=== PATIENT | male | born 1930 | race Caucasian/White ===

== ENCOUNTER 2016-08-15 14:38 | Inpatient (IN) | payer OTHER ==
[2016-08-15] MEDS ORDERED: methylPREDNISolone NA SUCC 125 MG/2 ML VIAL IVPB ONE (16:44)
[2016-08-15] MEDS ORDERED: ALBUTEROL SO4 2.5/IPRATROPIUM 0.5 INH SOL 3 ML VIAL.NEB. NEB ONE ×6 (16:44→18:18)
--- NOTE | 2016-08-15 16:44 | PDOC ---
History of Present Illness - General History Source: Patient, Family Exam Limitations: No Limitations - History of Present Illness Initial Comments: 08/15/16 17:37 The patient is an 84 year old male, with significant past medical history of asthma, COPD, NIDDM, colon perforation, colostomy, multiple hernias, hernia repair, diverticulitis, who presents today complaining of SOB, wheezing, and dry cough x 2 days. The patient notes that he administers 3-4 nebulizer treatments at home per day. He has been compliant with his medications today, but is still short of breath and wheezing. The patients daughter states that the patient usually starts to take his prednisone when the wheezing and SOB persist. Denies fever, chills, nausea, vomiting. Denies chest pain. Denies abdominal pain. Allergies: quinine sulfate PCP- Dr. Jin <Iris Sorto - Last Filed: 08/15/16 17:37> <Lindsey Sanz - Last Filed: 08/16/16 01:28> - General Chief Complaint: Shortness of Breath Stated Complaint: DIFF BREATHING Time Seen by Provider: 08/15/16 16:29 Past History <Iris Sorto - Last Filed: 08/15/16 17:37> - Past Medical History Asthma: Yes COPD: Yes Diabetes: Yes - Surgical History Abdominal Surgery: Yes (COLOSTOMY,HERNIA REPAIR) - Psycho/Social/Smoking Cessation Hx Anxiety: No Suicidal Ideation: No Smoking Status: No Smoking History: Never smoked Number of Cigarettes Smoked Daily: 0 Information on smoking cessation initiated: No Hx Alcohol Use: No <Lindsey Sanz - Last Filed: 08/16/16 01:28> - Past Medical History Allergies/Adverse Reactions: Allergies Allergy/AdvReac Type Severity Reaction Status Date / Time quinine sulfate [From Quine] Allergy Verified 08/15/16 14:46 Home Medications: Ambulatory Orders Albuterol 0.083% Nebulizer Deanna [Ventolin 0.083%] 1 neb NEB QID 08/15/16 Allopurinol [Zyloprim -] 300 mg PO BID 08/15/16 Budesonide/Formeterol Fumarate [SYMBICORT 160/4.5mcg -] 1 inh PO DAILY 08/15/16 Cyanocobalamin (Vitamin B-12) [Vitamin B-12] 1,000 mcg SL DAILY 08/15/16 Folic Acid/B Complex C No.17 [Virt-Harman Plus Tablet] 5 mg PO DAILY 08/15/16 Furosemide [Lasix] 40 mg PO DAILY 08/15/16 Gabapentin [Neurontin -] 300 mg PO BID 08/15/16 Glimepiride [Amaryl] 2 mg PO DAILY 08/15/16 Ipratropium [place] 0.2 mg IH DAILY 08/15/16 Montelukast Na [Singulair -] 10 mg PO HS 08/15/16 Polyethylene Glycol 3350 [Miralax (For Daily Use) -] 17 gm PO DAILY 08/15/16 Potassium Chloride [K-Dur -] 20 meq PO DAILY 08/15/16 Review of Systems - Review of Systems Comments:: 08/15/16 17:38 CONSTITUTIONAL: Absent: fever, chills, diaphoresis, generalized weakness, malaise, loss of appetite HEENT: Absent: rhinorrhea, nasal congestion, throat pain, throat swelling, difficulty swallowing, mouth swelling, ear pain, eye pain, visual Changes CARDIOVASCULAR: Absent: chest pain, syncope, palpitations, irregular heart rate, lightheadedness , peripheral edema RESPIRATORY: Present: cough, SOB, wheezing. Absent: dyspnea with exertion, orthopnea, stridor, hemoptysis GASTROINTESTINAL: Absent: abdominal pain, abdominal distension, nausea, vomiting, diarrhea, constipation, melena, hematochezia GENITOURINARY: Absent: dysuria, frequency, urgency, hesitancy, hematuria, flank pain, genital pain MUSCULOSKELETAL: Absent: myalgia, arthralgia, joint swelling SKIN: Absent: rash, itching, pallor HEMATOLOGIC/IMMUNOLOGIC: Absent: easy bleeding, easy bruising, lymphadenopathy, frequent infections ENDOCRINE: Absent: unexplained weight gain, unexplained weight loss, heat intolerance, cold intolerance NEUROLOGIC: Absent: headache, focal weakness or paresthesias, dizziness, unsteady gait, seizure, mental status changes, bladder or bowel incontinence PSYCHIATRIC: Absent: anxiety, depression, suicidal or homicidal ideation, hallucinations. <Iris Sorto - Last Filed: 08/15/16 17:37> *Physical Exam - Vital Signs Last Vital Signs Temp Pulse Resp BP Pulse Ox 97.3 F L 112 H 20 121/62 99 08/15/16 14:41 08/15/16 14:41 08/15/16 14:41 08/15/16 14:41 08/15/16 15:41 - Physical Exam Comments: 08/15/16 17:38 GENERAL: Well developed, well nourished. Awake and alert and conversive. In no acute distress. HEENT: Normocephalic, atraumatic. PERRLA, EOMI. No conjunctival pallor. Sclera are non- icteric. Moist mucous membranes. Oropharynx is clear. NECK: Supple. Full ROM. No JVD. Carotid pulses 2+ and symmetric, without bruits. No thyromegaly. No lymphadenopathy. CARDIOVASCULAR: Regular rate and rhythm. No murmurs, rubs, or gallops. Distal pulses are 2+ and symmetric. PULMONARY: +Diffuse wheezing in all lung ramos. No rales or rhonchi. ABDOMINAL: +Large reducible ventral hernias. Well heeled lower abdominal incision. Soft. Non-tender. No rebound or guarding. No organomegaly. Normoactive bowel sounds. MUSCULOSKELETAL Normal range of motion at all joints. No bony deformities or tenderness. No CVA tenderness. EXTREMITIES: 3+ pitting edema in the lower extremities bilaterally. No cyanosis. No clubbing. No calf tenderness. SKIN: Warm and dry. Normal capillary refill. No rashes. No jaundice. NEUROLOGICAL: Alert, awake, appropriate. Cranial nerves 2-12 intact. No deficits to light touch and temperature in face, upper extremities and lower extremities. No motor deficits in the in face, upper extremities and lower extremities. Normoreflexic in the upper and lower extremities. Normal speech. Toes are downgoing bilaterally. Gait is normal without ataxia. PSYCHIATRIC: Cooperative. Good eye contact. Appropriate mood and affect. <Iris Sorto - Last Filed: 08/15/16 17:37> - Vital Signs Last Vital Signs Temp Pulse Resp BP Pulse Ox 97.3 F L 112 H 20 121/62 99 08/15/16 14:41 08/15/16 14:41 08/15/16 14:41 08/15/16 14:41 08/15/16 15:41 <Lindsey Sanz - Last Filed: 08/16/16 01:28> ED Treatment Course - LABORATORY CBC & Chemistry Diagram: 08/15/16 16:50 08/15/16 16:50 - ADDITIONAL ORDERS Additional order review: 08/15/16 16:50 RBC 4.75 MCV 88.3 MCHC 33.7 RDW 14.7 MPV 8.0 Neutrophils % 67.2 Lymphocytes % 18.3 D Monocytes % 8.9 Eosinophils % 4.8 H D Basophils % 0.8 - Medications Given in the ED: ED Medications Discontinued Medications Generic Name Dose Route Start Last Admin Trade Name Candace PRN Reason Stop Dose Admin Methylprednisolone Sodium Succinate 125 mg 08/15/16 16:44 08/15/16 16:57 Solu-Medrol - IVPB 08/15/16 16:45 125 mg ONCE ONE Administration <Iris Sorto - Last Filed: 08/15/16 17:37> - LABORATORY CBC & Chemistry Diagram: 08/15/16 16:50 08/15/16 16:50 <Lindsey Sanz - Last Filed: 08/16/16 01:28> Medical Decision Making - Medical Decision Making 08/16/16 01:24 85 yo male p/w weakness and increasing sob -PMH of copd and tonight he was wheezing -he responded to bronchodilators and steroids cxr no infiltrates neg troponin imp copd exacerbation <Lindsey Sanz - Last Filed: 08/16/16 01:28> *DC/Admit/Observation/Transfer - Attestations Scribe Attestion: 08/15/16 17:39 Documentation prepared by TANO Rajan, acting as medical clinic manager for Lindsey Sanz MD. <Iris Sorto - Last Filed: 08/15/16 17:37> - Discharge Dispostion Admit: Yes <Lindsey Sanz - Last Filed: 08/16/16 01:28> Diagnosis at time of Disposition: COPD exacerbation - Referrals
[2016-08-15] MEDS ORDERED: methylPREDNISolone NA SUCC 125 MG/2 ML VIAL ONE (16:55)
[2016-08-15 17:00] LABS: BASOPHIL 0.8 % (0-2.0); EOSINOPHIL 4.8 % (0-4.5); MCH 29.7 pg (25.7-33.7); MCHC 33.7 g/dl (32.0-35.9); MEAN CELL VOLUME 88.3 fl (80-96); NEUTROPHILS 67.2 % (42.8-82.8); PLATELET COUNT 140 K/MM3 (134-434); RDW 14.7 % (11.9-15.9); WHITE BLOOD COUNT 6.3 K/mm3 (4.0-10.0)
[2016-08-15] MEDS ORDERED: ALBUTEROL SO4 0.083% IH SOL 2.5 MG/3 ML VIAL.NEB. NEB ONE ×2 (17:25→18:03)
[2016-08-15 17:54] LABS: ALBUMIN 3.7 g/dl (3.4-5.0); ANION GAP 10 (8-16); CALCIUM 9.2 mg/dL (8.5-10.1); CO2 27 mmol/L (21-32); CREATININE 0.9 mg/dL (0.7-1.3); GLUCOSE,RANDOM 104 mg/dL (74-106); SGOT/AST 26 U/L (15-37); SGPT/ALT 31 U/L (12-78)
[2016-08-15 17:56] LABS: ALK PHOS 78 U/L (45-117); BILIRUBIN,TOTAL 0.9 mg/dL (0.2-1.0); TOT PROT 6.7 g/dl (6.4-8.2)
[2016-08-15 18:15] LABS: TROPONIN I < 0.02 ng/ml (0.00-0.05)
--- NOTE | 2016-08-15 21:43 | HP ---
[id number] [id number] HISTORY OF PRESENT ILLNESS: Patient is an 84 yo M with a PMHx of asthma, COPD, NIDDM, colon perforation, colostomy, multiple hernias, hernia repair, diverticulitis who presents with sob and wheezing. Also has associated dry cough of 2 days in duration. Patients notes hes been taking 3-4 nebulizer treatments without improvement. Denies chest pain, chest pressure, sputum production with cough. Denies: palpitations, abdominal pain, fever, chills, nausea, vomiting, diarrhea and headaches. ER course is notable for: 1. Chest X-Ray with no acute process 2. Slightly elevated BMp at 457 3. Solumedrol and albuterol nebulizers given in ED Recent Travel: None PAST MEDICAL HISTORY: asthma, COPD, NIDDM, colon perforation, colostomy, multiple hernias, hernia repair, diverticulitis PAST SURGICAL HISTORY: colostomy and hernia repair Social History: Smoking: None Alcohol: None Drugs: None Family History: Noncontributory Allergies quinine sulfate [From Quine] Allergy (Verified 08/15/16 14:46) HOME MEDICATIONS: Home Medications Medication Instructions Recorded Albuterol 0.083% Nebulizer Deanna 1 neb NEB QID 08/15/16 [Ventolin 0.083%] Allopurinol [Zyloprim -] 300 mg PO BID 08/15/16 Budesonide/Formeterol Fumarate 1 inh PO DAILY 08/15/16 [SYMBICORT 160/4.5mcg -] Cyanocobalamin (Vitamin B-12) 1,000 mcg SL DAILY 08/15/16 [Vitamin B-12] Folic Acid/B Complex C No.17 5 mg PO DAILY 08/15/16 [Virt-Harman Plus Tablet] Furosemide [Lasix] 40 mg PO DAILY 08/15/16 Gabapentin [Neurontin -] 300 mg PO BID 08/15/16 Glimepiride [Amaryl] 2 mg PO DAILY 08/15/16 Ipratropium [place] 0.2 mg IH DAILY 08/15/16 Montelukast Na [Singulair -] 10 mg PO HS 08/15/16 Polyethylene Glycol 3350 [Miralax 17 gm PO DAILY 08/15/16 (For Daily Use) -] Potassium Chloride [K-Dur -] 20 meq PO DAILY 08/15/16 REVIEW OF SYSTEMS CONSTITUTIONAL: Absent: fever, chills, diaphoresis, generalized weakness, malaise, loss of appetite, weight change HEENT: Absent: rhinorrhea, nasal congestion, throat pain, throat swelling, difficulty swallowing, mouth swelling, ear pain, eye pain, visual changes CARDIOVASCULAR: Absent: chest pain, syncope, palpitations, irregular heart rate, lightheadedness , peripheral edema RESPIRATORY: +dry cough, sob, wheezing Absent: dyspnea with exertion, orthopnea, stridor, hemoptysis GASTROINTESTINAL: Absent: abdominal pain, abdominal distension, nausea, vomiting, diarrhea, constipation, melena, hematochezia GENITOURINARY: Absent: dysuria, frequency, urgency, hesitancy, hematuria, flank pain, genital pain MUSCULOSKELETAL: Absent: myalgia, arthralgia, joint swelling, back pain, neck pain SKIN: Absent: rash, itching, pallor HEMATOLOGIC/IMMUNOLOGIC: Absent: easy bleeding, easy bruising, lymphadenopathy, frequent infections ENDOCRINE: Absent: unexplained weight gain, unexplained weight loss, heat intolerance, cold intolerance NEUROLOGIC: Absent: headache, focal weakness or paresthesias, dizziness, unsteady gait, seizure, mental status changes, bladder or bowel incontinence PSYCHIATRIC: Absent: anxiety, depression, suicidal or homicidal ideation, hallucinations. PHYSICAL EXAMINATION Vital Signs - 24 hr 08/15/16 08/15/16 14:41 15:41 Temperature 97.3 F L Pulse Rate 112 H Respiratory 20 Rate Blood Pressure 121/62 O2 Sat by Pulse 97 99 Oximetry (%) GENERAL: Awake, alert, and fully oriented, in no acute distress. HEAD: Normal with no signs of trauma. EYES: Pupils equal, round and reactive to light, extraocular movements intact, sclera anicteric, conjunctiva clear. No lid lag. EARS, NOSE, THROAT: Ears normal, nares patent, oropharynx clear without exudates. Moist mucous membranes. NECK: Normal range of motion, supple without lymphadenopathy, JVD, or masses. LUNGS: Breath sounds equal, Bilateral midl expiratory wheezing. No crackles. No accessory muscle use. HEART: Regular rate and rhythm, normal S1 and S2 without murmur, rub or gallop. ABDOMEN: Soft, nontender, not distended, normoactive bowel sounds, no guarding, no rebound, no masses. No hepatomegaly or splenomegaly. MUSCULOSKELETAL: Normal range of motion at all joints. No bony deformities or tenderness. No CVA tenderness. UPPER EXTREMITIES: 2+ pulses, warm, well-perfused. No cyanosis. No clubbing. No peripheral edema. LOWER EXTREMITIES: 2+ pulses, warm, well-perfused. No calf tenderness. No peripheral edema. NEUROLOGICAL: Cranial nerves II-XII intact. Normal speech. Gait not accessed. PSYCHIATRIC: Cooperative. Good eye contact. Appropriate mood and affect. SKIN: Warm, dry, normal turgor, no rashes or lesions noted, normal capillary refill. Laboratory Results - last 24 hr 08/15/16 08/15/16 08/15/16 16:50 16:50 16:50 WBC 6.3 RBC 4.75 Hgb 14.1 D Hct 42.0 D MCV 88.3 MCHC 33.7 RDW 14.7 Plt Count 140 D MPV 8.0 Neutrophils % 67.2 Lymphocytes % 18.3 D Monocytes % 8.9 Eosinophils % 4.8 H D Basophils % 0.8 Sodium 142 Potassium 4.5 D Chloride 105 Carbon Dioxide 27 Anion Gap 10 BUN 21 H D Creatinine 0.9 Creat Clearance w eGFR > 60 Random Glucose 104 Calcium 9.2 Total Bilirubin 0.9 D AST 26 D ALT 31 D Alkaline Phosphatase 78 Creatine Kinase Troponin I B-Natriuretic Peptide 457.56 H Total Protein 6.7 Albumin 3.7 08/15/16 17:50 WBC RBC Hgb Hct MCV MCHC RDW Plt Count MPV Neutrophils % Lymphocytes % Monocytes % Eosinophils % Basophils % Sodium Potassium Chloride Carbon Dioxide Anion Gap BUN Creatinine Creat Clearance w eGFR Random Glucose Calcium Total Bilirubin AST ALT Alkaline Phosphatase Creatine Kinase 73 Troponin I < 0.02 B-Natriuretic Peptide Total Protein Albumin ASSESSMENT/PLAN: Patient is an 84 yo M with a PMHx of asthma, COPD, NIDDM, colon perforation, colostomy, multiple hernias, hernia repair, diverticulitis who presents with sob being admitted for COPD exacerbation. 1.) Acute exacerbation of COPD -Continue with duoneb ATC/PRN -Continue with prednisone 60 in AM -Continue with symbicort -Continue with singulair 2.) Asthma -Continue nebs 3.) Diabetes noninsulin dependent -Continue glimepiride -Sliding scale -Fingersticks -ACHS DVT ppx -Low risk -Heparin 5000 Q 8 Admit to [facility] Documentation prepared by Nohemy Loera, acting as medical records assistant for Giovani Barnett.O. ER attempted to contact Dr. Jin from 8pm - 9:25pm. Hospitalist accepted admission. <Herrera Tobar - Last Filed: 09/08/16 19:03> Visit type - Emergency Visit Emergency Visit: Yes ED Registration Date: 08/15/16 Care time: The patient presented to the Emergency Department on the above date and was hospitalized for further evaluation of their emergent condition. - New Patient This patient is new to me today: Yes Date on this admission: 09/08/16 - Critical Care Critical Care patient: No
[2016-08-15] MEDS ORDERED: ALBUTEROL SO4 2.5/IPRATROPIUM 0.5 INH SOL 3 ML VIAL.NEB. NEB PRN (21:58)
[2016-08-15] MEDS ORDERED: ALBUTEROL SO4 2.5/IPRATROPIUM 0.5 INH SOL 3 ML VIAL.NEB. NEB SCH (22:00)
[2016-08-15] MEDS: ALLOPURINOL 300 MG TABLET (FP) PO SCH (22:30)
[2016-08-15] MEDS: MONTELUKAST NA 10 MG TABLET PO SCH (22:30)
[2016-08-15] MEDS: GABAPENTIN 300 MG CAPSULE (FP) PO SCH (22:30)
[2016-08-15] MEDS: INSULIN SLIDING SCALE (NOVOLOG) 1 VIAL SQ SCH (23:00)
[2016-08-15] MEDS: LEVOFLOXACIN 750 MG IVPB 150 ML IVPB SCH (23:00)
[2016-08-15] MEDS ORDERED: LEVOFLOXACIN 750 MG IVPB 150 ML IVPB ONE (23:15)
[2016-08-15] MEDS ORDERED: INSULIN NPH 100 UNITS/ML *VIAL ONE (23:42)
[2016-08-16 00:52] VITALS: BMI 28.8
[2016-08-16] MEDS: HEPARIN NA (PORCINE) 5,000 UNITS/ML 1ML VIAL SQ SCH ×3 (01:43→17:35)
[2016-08-16] MEDS ORDERED: INSULIN (NOVOLOG) ASPART 100 UNITS/ML 10ML VIAL ONE ×2 (06:31→11:15)
[2016-08-16] MEDS: INSULIN SLIDING SCALE (NOVOLOG) 1 VIAL SQ SCH ×4 (06:39→21:19)
[2016-08-16] MEDS: GLIMEPIRIDE 2 MG TABLET (FP) PO SCH (06:39)
[2016-08-16 07:28] LABS: MCHC 34.3 g/dl (32.0-35.9); MEAN CELL VOLUME 87.4 fl (80-96); MEAN PLT VOLUME 7.2 fl (7.5-11.1); PLATELET COUNT 127 K/MM3 (134-434); RDW 14.3 % (11.9-15.9); WHITE BLOOD COUNT 3.1 K/mm3 (4.0-10.0)
[2016-08-16 07:49] LABS: CALCIUM 8.9 mg/dL (8.5-10.1); MAGNESIUM 1.8 mg/dL (1.8-2.4)
[2016-08-16] MEDS ORDERED: PT OWN MED DRAWER 7, Y5N ONE ×2 (09:06→20:58)
[2016-08-16] MEDS: LEVOFLOXACIN 750 MG IVPB 150 ML IVPB SCH (09:11)
[2016-08-16] MEDS: FUROSEMIDE 40 MG TABLET (FP) PO SCH (09:12)
[2016-08-16] MEDS: CYANOCOBALAMIN 1,000 MCG TABLET (FP) PO SCH (09:12)
[2016-08-16] MEDS: GABAPENTIN 300 MG CAPSULE (FP) PO SCH ×2 (09:12→21:18)
[2016-08-16] MEDS: ALLOPURINOL 300 MG TABLET (FP) PO SCH ×2 (09:12→21:18)
[2016-08-16] MEDS ORDERED: BUDESONIDE/FORMETEROL FUMARATE 160/4.5 mcg INHALER IH SCH (10:00)
[2016-08-16] MEDS ORDERED: predniSONE 20 MG TABLET (UD) PO SCH (10:00)
--- NOTE | 2016-08-16 11:39 | PN ---
Progress Note (short form) - Note Progress Note: patient seen and examined in room Dyspneic reports CEJA provides hx of progressive SOB over last week or so worse yesterday -brought in by daughter who is a nurse Vital Signs Period Temp Pulse Resp BP Sys/Prather Pulse Ox Last 24 Hr 97.3 F-97.7 F 82-112 16-20 117-126/62-80 96-99 sitting in chair O2 in place neck supple heart reg Lung wheezing insp / exp coughing with deep inspiration CBC, BMP 08/16/16 06:20 08/16/16 06:20 Active Medications Albuterol/Ipratropium (Duoneb -) 1 amp NEB Q6H PRN PRN Reason: SHORT OF BREATH/WHEEZING Albuterol/Ipratropium (Duoneb -) 1 amp NEB TIDR [facility] Last Admin: 08/15/16 22:30 Dose: 1 amp Allopurinol (Zyloprim -) 300 mg PO BID [facility] Last Admin: 08/16/16 09:12 Dose: 300 mg Budesonide/Formoterol Fumarate (Symbicort 160/4.5mcg -) 1 puff IH DAILY [facility] Last Admin: 08/16/16 09:13 Dose: 1 puff Cyanocobalamin (Vitamin B12 -) 1,000 mcg PO DAILY [facility] Last Admin: 08/16/16 09:12 Dose: 1,000 mcg Furosemide (Lasix -) 40 mg PO DAILY [facility] Last Admin: 08/16/16 09:12 Dose: 40 mg Gabapentin (Neurontin -) 300 mg PO BID [facility] Last Admin: 08/16/16 09:12 Dose: 300 mg Glimepiride (Amaryl -) 2 mg PO AM [facility] Last Admin: 08/16/16 06:39 Dose: 2 mg Heparin Sodium (Porcine) (Heparin -) 5,000 unit SQ Q8H-IV [facility] Last Admin: 08/16/16 09:12 Dose: 5,000 unit Levofloxacin (Levaquin 750 Mg Premixed Ivpb -) 150 mls @ 100 mls/hr IVPB DAILY [facility] Last Admin: 08/16/16 09:11 Dose: 100 mls/hr Insulin Aspart (Novolog Vial Sliding Scale -) 1 vial SQ ACHS [facility]AN PRN Reason: Protocol Last Admin: 08/16/16 11:17 Dose: 2 unit Montelukast Sodium (Singulair -) 10 mg PO HS [facility] Last Admin: 08/15/16 22:30 Dose: 10 mg Non-Formulary Medication (Folic Acid/B Complex C No.17 [Virt-Harman Plus Tablet]) 5 mg PO DAILY [facility] Prednisone (Deltasone -) 60 mg PO DAILY [facility] Last Admin: 08/16/16 09:12 Dose: 60 mg The patient is an 84 year old male, with significant past medical history of asthma, COPD, NIDDM, colon perforation, colostomy, multiple hernias, hernia repair, diverticulitis, who presents today complaining of SOB, wheezing, and dry cough The patient notes that he administers 3-4 nebulizer treatments at home per day. He has been compliant with his medications today, but is still short of breath and wheezing. The patients daughter states that the patient usually starts to take his prednisone when the wheezing and SOB persist. # exacebation of COPD IV steroids / inhaled steroids/ nebulizer O2 / expectorants emperic abx tx Pulmonary consult Dr Castro # DM sliding scale - adjust as patient on steorids # GI hx colon perforation / clostomy / hernia repairs diverticulitis Problem List - Problems (1) COPD exacerbation Code(s): J44.1 - CHRONIC OBSTRUCTIVE PULMONARY DISEASE W (ACUTE) EXACERBATION (2) Diabetes mellitus Code(s): E11.9 - TYPE 2 DIABETES MELLITUS WITHOUT COMPLICATIONS
[2016-08-16] MEDS: methylPREDNISolone NA SUCC 125 MG/2 ML VIAL IVPB SCH ×2 (13:04→17:34)
[2016-08-16] MEDS: guaiFENesin 600 MG TABLET.ER (FP) PO SCH ×2 (13:05→21:18)
--- NOTE | 2016-08-16 13:07 | CON.PULM ---
Consult Consult Specialty:: PULM/CCM Referred by:: MARTITA Reason for Consultation:: SOB - History of Present Illness Chief Complaint: Progressive SOB over 1 week History of Present Illness: 84 M, remote smoking history, suspected to have COPD, (?) adult onset Asthma ( never steroid dependent, never intubated, unknown PEF), NIDDM, colon perforation , colostomy, multiple hernias and hernia repair, and diverticulitis. 1 week of progressively worsening SOB and congested cough. No travel history or sick contacts. No fever or chills. No hemoptysis. CXR: Minimal chronic change when compared to old films / no acute process - History Source History Provided By: Patient Limitations to Obtaining History: No Limitations - Past Medical History Pulmonary: Yes: Asthma, Bronchitis, COPD. No: O2 Dependent, Previously Intubated, Pulmonary Embolus - Alcohol/Substance Use Hx Alcohol Use: No - Smoking History Smoking history: Never smoked Aproximately how many cigarettes per day: 0 Home Medications - Allergies Allergies/Adverse Reactions: Allergies Allergy/AdvReac Type Severity Reaction Status Date / Time quinine sulfate [From Quine] Allergy Verified 08/15/16 14:46 - Home Medications Home Medications: Ambulatory Orders Albuterol 0.083% Nebulizer Deanna [Ventolin 0.083%] 1 neb NEB QID 08/15/16 Allopurinol [Zyloprim -] 300 mg PO BID 08/15/16 Budesonide/Formeterol Fumarate [SYMBICORT 160/4.5mcg -] 1 inh PO DAILY 08/15/16 Cyanocobalamin (Vitamin B-12) [Vitamin B-12] 1,000 mcg SL DAILY 08/15/16 Folic Acid/B Complex C No.17 [Virt-Harman Plus Tablet] 5 mg PO DAILY 08/15/16 Furosemide [Lasix] 40 mg PO DAILY 08/15/16 Gabapentin [Neurontin -] 300 mg PO BID 08/15/16 Glimepiride [Amaryl] 2 mg PO DAILY 08/15/16 Ipratropium [place] 0.2 mg IH DAILY 08/15/16 Montelukast Na [Singulair -] 10 mg PO HS 08/15/16 Polyethylene Glycol 3350 [Miralax (For Daily Use) -] 17 gm PO DAILY 08/15/16 Potassium Chloride [K-Dur -] 20 meq PO DAILY 08/15/16 Review of Systems - Review of Systems Constitutional: reports: Malaise. denies: Chills, Diaphoresis, Fever, Night Sweats, Unintentional Wgt. Loss, Weakness Eyes: reports: No Symptoms HENT: reports: No Symptoms Neck: reports: No Symptoms Cardiovascular: reports: Shortness of Breath. denies: Chest Pain, Edema, Palpitations Respiratory: reports: Cough, SOB, SOB on Exertion, Wheezing. denies: Hemoptysis , Snoring Gastrointestinal: reports: No Symptoms Genitourinary: reports: No Symptoms Breasts: reports: No Symptoms Reported Musculoskeletal: reports: No Symptoms Integumentary: reports: No Symptoms Neurological: reports: No Symptoms Endocrine: reports: No Symptoms Hematology/Lymphatic: reports: No Symptoms Psychiatric: reports: No Symptoms Physical Exam Vital Sings: Vital Signs Temperature 97.6 F 08/16/16 09:31 Pulse Rate 85 08/16/16 09:31 Respiratory Rate 20 08/16/16 09:31 Blood Pressure 126/68 08/16/16 09:31 O2 Sat by Pulse Oximetry (%) 97 08/16/16 09:00 Constitutional: Yes: Well Nourished, No Distress, Calm Eyes: Yes: Conjunctiva Clear, EOM Intact HENT: Yes: Atraumatic, Normocephalic Neck: Yes: Supple, Trachea Midline Cardiovascular: Yes: Regular Rate and Rhythm Respiratory: Yes: Cough, Diminished, On Nasal O2, Rhonchi, SOB, Wheezes. No: Accessory Muscle Use, Rales, Stridor, Tachypnea ...Inspection: Yes: WNL ...Clubbing: No Gastrointestinal: Yes: Normal Bowel Sounds, Soft, Abdomen, Obese Renal/: Yes: WNL Musculoskeletal: Yes: WNL Extremities: Yes: WNL Edema: No Peripheral Pulses WNL: Yes Integumentary: Yes: WNL Neurological: Yes: WNL, Alert, Oriented ...Motor Strength: WNL Psychiatric: Yes: WNL, Alert, Oriented Labs: CBC, BMP 08/16/16 06:20 08/16/16 06:20 Imaging - Results Chest X-ray: Report Reviewed, Image Reviewed Problem List - Problems (1) COPD exacerbation Code(s): J44.1 - CHRONIC OBSTRUCTIVE PULMONARY DISEASE W (ACUTE) EXACERBATION (2) Diabetes mellitus Code(s): E11.9 - TYPE 2 DIABETES MELLITUS WITHOUT COMPLICATIONS (3) Acute bronchitis Code(s): J20.9 - ACUTE BRONCHITIS, UNSPECIFIED Assessment/Plan Medrol BD TX ordered Symbicort : 2 inhalations BID Monitor off ABX for now : I suspect a Viral illness O2 as needed PFTs after stable/discharge VTE prophylaxis Mucinex Will follow Thank you. Dr Langley
[2016-08-16] MEDS: ALBUTEROL SO4 0.083% IH SOL 2.5 MG/3 ML VIAL.NEB. NEB SCH ×2 (14:11→21:19)
[2016-08-16] MEDS: BUDESONIDE/FORMETEROL FUMARATE 160/4.5 mcg INHALER IH SCH (21:18)
[2016-08-16] MEDS: MONTELUKAST NA 10 MG TABLET PO SCH (21:18)
[2016-08-17] MEDS: methylPREDNISolone NA SUCC 125 MG/2 ML VIAL IVPB SCH ×3 (01:19→18:21)
[2016-08-17] MEDS: HEPARIN NA (PORCINE) 5,000 UNITS/ML 1ML VIAL SQ SCH ×3 (01:20→18:21)
[2016-08-17] MEDS: ALBUTEROL SO4 0.083% IH SOL 2.5 MG/3 ML VIAL.NEB. NEB SCH ×3 (06:01→22:14)
[2016-08-17] MEDS: GLIMEPIRIDE 2 MG TABLET (FP) PO SCH (06:35)
[2016-08-17] MEDS: INSULIN SLIDING SCALE (NOVOLOG) 1 VIAL SQ SCH ×4 (06:36→23:40)
[2016-08-17 07:45] LABS: BASOPHIL 0.1 % (0-2.0); MCH 29.7 pg (25.7-33.7); MCHC 33.5 g/dl (32.0-35.9); MEAN CELL VOLUME 88.8 fl (80-96); MEAN PLT VOLUME 7.6 fl (7.5-11.1); NEUTROPHILS 93.2 % (42.8-82.8); PLATELET COUNT 120 K/MM3 (134-434); RDW 14.3 % (11.9-15.9); WHITE BLOOD COUNT 7.1 K/mm3 (4.0-10.0)
--- NOTE | 2016-08-17 08:06 | EKG ---
Test Reason : Blood Pressure : / mmHG Vent. Rate : 084 BPM Atrial Rate : 084 BPM P-R Int : 180 ms QRS Dur : 114 ms QT Int : 392 ms P-R-T Axes : 039 -55 029 degrees QTc Int : 463 ms NORMAL SINUS RHYTHM RIGHT BUNDLE BRANCH BLOCK LEFT ANTERIOR FASCICULAR BLOCK BIFASCICULAR BLOCK ABNORMAL ECG WHEN COMPARED WITH ECG OF 03-SEP-2012 19:32, NO SIGNIFICANT CHANGE WAS FOUND Confirmed by HERNAN CHEN MD ([id number]) on 08/17/2016 8:05:36 AM Referred By: Confirmed By:HERNAN CHEN MD
[2016-08-17 08:15] LABS: ALBUMIN 3.8 g/dl (3.4-5.0); CALCIUM 9.8 mg/dL (8.5-10.1); MAGNESIUM 1.9 mg/dL (1.8-2.4)
[2016-08-17 08:18] LABS: BILIRUBIN,TOTAL 0.8 mg/dL (0.2-1.0); CREATININE 1.2 mg/dL (0.7-1.3); TOT PROT 6.9 g/dl (6.4-8.2)
[2016-08-17] MEDS ORDERED: PT OWN MED DRAWER 7, Y5N ONE (09:31)
[2016-08-17] MEDS: FUROSEMIDE 40 MG TABLET (FP) PO SCH ×2 (09:37→12:39)
[2016-08-17] MEDS: GABAPENTIN 300 MG CAPSULE (FP) PO SCH ×2 (09:37→21:22)
[2016-08-17] MEDS: guaiFENesin 600 MG TABLET.ER (FP) PO SCH ×2 (09:37→21:21)
[2016-08-17] MEDS: CYANOCOBALAMIN 1,000 MCG TABLET (FP) PO SCH (09:37)
[2016-08-17] MEDS: ALLOPURINOL 300 MG TABLET (FP) PO SCH ×2 (09:37→21:22)
[2016-08-17] MEDS: BUDESONIDE/FORMETEROL FUMARATE 160/4.5 mcg INHALER IH SCH (09:38)
[2016-08-17] MEDS ORDERED: INSULIN (NOVOLOG) ASPART 100 UNITS/ML 10ML VIAL ONE (11:27)
--- NOTE | 2016-08-17 12:05 | PN ---
Progress Note (short form) - Note Progress Note: OOB to chair. Reports feeling better today. Less SOB. Slightly less congested cough. CXR: Clear Intake & Output 08/14/16 08/15/16 08/16/16 08/17/16 23:59 23:59 23:59 23:59 Intake Total 600 50 Output Total 200 Balance 400 50 Weight 168 lb 169 lb 167 lb 3 oz Last Vital Signs Temp Pulse Resp BP Pulse Ox 99.0 F 97 H 18 119/68 97 08/17/16 10:30 08/17/16 10:27 08/17/16 10:27 08/17/16 10:27 08/16/16 20:23 Active Medications Albuterol Sulfate (Ventolin 0.083% Nebulizer Soln -) 1 amp NEB TID [facility] Last Admin: 08/17/16 06:01 Dose: 1 amp Albuterol/Ipratropium (Duoneb -) 1 amp NEB Q6H PRN PRN Reason: SHORT OF BREATH/WHEEZING Allopurinol (Zyloprim -) 300 mg PO BID [facility] Last Admin: 08/17/16 09:37 Dose: 300 mg Budesonide/Formoterol Fumarate (Symbicort 160/4.5mcg -) 2 puff IH BID [facility] Last Admin: 08/17/16 09:38 Dose: 2 puff Cyanocobalamin (Vitamin B12 -) 1,000 mcg PO DAILY [facility] Last Admin: 08/17/16 09:37 Dose: 1,000 mcg Furosemide (Lasix -) 40 mg PO DAILY [facility] Last Admin: 08/17/16 09:37 Dose: Not Given Gabapentin (Neurontin -) 300 mg PO BID [facility] Last Admin: 08/17/16 09:37 Dose: 300 mg Glimepiride (Amaryl -) 2 mg PO AM [facility] Last Admin: 08/17/16 06:35 Dose: 2 mg Guaifenesin (Mucinex -) 600 mg PO BID [facility] Last Admin: 08/17/16 09:37 Dose: 600 mg Heparin Sodium (Porcine) (Heparin -) 5,000 unit SQ Q8H-IV [facility] Last Admin: 08/17/16 09:37 Dose: 5,000 unit Insulin Aspart (Novolog Vial Sliding Scale -) 1 vial SQ ACHS [facility] PRN Reason: Protocol Last Admin: 08/17/16 11:31 Dose: 4 unit Methylprednisolone Sodium Succinate (Solu-Medrol -) 80 mg IVPB Q8H-IV [facility] Last Admin: 08/17/16 09:36 Dose: 80 mg Montelukast Sodium (Singulair -) 10 mg PO HS [facility] Last Admin: 08/16/16 21:18 Dose: 10 mg Non-Formulary Medication (Folic Acid/B Complex C No.17 [Virt-Harman Plus Tablet]) 5 mg PO DAILY [facility] Constitutional: Yes: NAD Eyes: Yes: Conjunctiva Clear, EOM Intact HENT: Yes: Atraumatic, Normocephalic Neck: Yes: Supple, Trachea Midline Cardiovascular: Yes: Regular Rate and Rhythm Respiratory: Yes: Cough, Diminished, On Nasal O2, Rhonchi, Less Wheezes. No: Accessory Muscle Use, Rales, Stridor, Tachypnea ...Inspection: Yes: WNL ...Clubbing: No Gastrointestinal: Yes: Normal Bowel Sounds, Soft, Abdomen, Obese Renal/: Yes: WNL Musculoskeletal: Yes: WNL Extremities: Yes: WNL Edema: No Peripheral Pulses WNL: Yes Integumentary: Yes: WNL Neurological: Yes: WNL, Alert, Oriented ...Motor Strength: WNL Psychiatric: Yes: WNL, Alert, Oriented Labs: Laboratory Results - last 24 hr 08/16/16 08/16/16 08/17/16 16:57 21:08 05:27 WBC RBC Hgb Hct MCV MCHC RDW Plt Count MPV Neutrophils % Lymphocytes % Monocytes % Eosinophils % Basophils % Sodium Potassium Chloride Carbon Dioxide Anion Gap BUN Creatinine Creat Clearance w eGFR POC Glucometer 202 258 252 Random Glucose Calcium Magnesium Total Bilirubin AST ALT Alkaline Phosphatase Total Protein Albumin 08/17/16 08/17/16 08/17/16 06:00 06:00 11:29 WBC 7.1 D RBC 4.64 Hgb 13.8 Hct 41.3 MCV 88.8 MCHC 33.5 RDW 14.3 Plt Count 120 L MPV 7.6 Neutrophils % 93.2 H D Lymphocytes % 6.1 L D Monocytes % 0.6 L D Eosinophils % 0.0 D Basophils % 0.1 Sodium 139 Potassium 3.4 L D Chloride 99 Carbon Dioxide 27 Anion Gap 13 BUN 24 H Creatinine 1.2 Creat Clearance w eGFR 57.54 POC Glucometer 249 Random Glucose 248 H Calcium 9.8 Magnesium 1.9 Total Bilirubin 0.8 AST 27 ALT 32 Alkaline Phosphatase 75 Total Protein 6.9 Albumin 3.8 Problem List - Problems (1) COPD exacerbation Code(s): J44.1 - CHRONIC OBSTRUCTIVE PULMONARY DISEASE W (ACUTE) EXACERBATION (2) Diabetes mellitus Code(s): E11.9 - TYPE 2 DIABETES MELLITUS WITHOUT COMPLICATIONS (3) Acute bronchitis Code(s): J20.9 - ACUTE BRONCHITIS, UNSPECIFIED Assessment/Plan Medrol taper BD TX Symbicort : 2 inhalations BID Monitor off ABX for now : I suspect a Viral illness O2 as needed PFTs after stable/discharge VTE prophylaxis Mucinex Replete emilia Langley Problem List - Problems (1) COPD exacerbation Code(s): J44.1 - CHRONIC OBSTRUCTIVE PULMONARY DISEASE W (ACUTE) EXACERBATION (2) Diabetes mellitus Code(s): E11.9 - TYPE 2 DIABETES MELLITUS WITHOUT COMPLICATIONS (3) Acute bronchitis Code(s): J20.9 - ACUTE BRONCHITIS, UNSPECIFIED
[2016-08-17] MEDS ORDERED: POTASSIUM CHLORIDE TABS 20 MEQ TABLET.ER (FP) PO ONE (12:30)
[2016-08-17] MEDS: MONTELUKAST NA 10 MG TABLET PO SCH (21:22)
[2016-08-18] MEDS: methylPREDNISolone NA SUCC 125 MG/2 ML VIAL IVPB SCH ×3 (02:33→17:23)
[2016-08-18] MEDS: HEPARIN NA (PORCINE) 5,000 UNITS/ML 1ML VIAL SQ SCH ×3 (02:33→17:23)
[2016-08-18] MEDS ORDERED: PT OWN MED DRAWER 7, Y5N ONE ×2 (06:06→20:51)
[2016-08-18] MEDS: GLIMEPIRIDE 2 MG TABLET (FP) PO SCH (06:13)
[2016-08-18] MEDS: BUDESONIDE/FORMETEROL FUMARATE 160/4.5 mcg INHALER IH SCH ×4 (06:15→21:15)
[2016-08-18] MEDS: INSULIN SLIDING SCALE (NOVOLOG) 1 VIAL SQ SCH ×4 (06:16→21:14)
[2016-08-18] MEDS: ALBUTEROL SO4 0.083% IH SOL 2.5 MG/3 ML VIAL.NEB. NEB SCH (06:31)
[2016-08-18] MEDS: GABAPENTIN 300 MG CAPSULE (FP) PO SCH ×2 (09:12→21:15)
[2016-08-18] MEDS: guaiFENesin 600 MG TABLET.ER (FP) PO SCH ×2 (09:12→21:15)
[2016-08-18] MEDS: FUROSEMIDE 40 MG TABLET (FP) PO SCH (09:12)
[2016-08-18] MEDS: ALLOPURINOL 300 MG TABLET (FP) PO SCH ×2 (09:12→21:15)
[2016-08-18] MEDS: CYANOCOBALAMIN 1,000 MCG TABLET (FP) PO SCH (09:12)
--- NOTE | 2016-08-18 09:24 | PN ---
Progress Note (short form) - Note Progress Note: coughing and wheezing worse today than yesterday Vital Signs Period Temp Pulse Resp BP Sys/Prather Pulse Ox Last 24 Hr 97.6 F-99.0 F 63-105 16-20 100-139/56-71 98-99 neck supple heart reg S1/S2 lung coarse wheezing bilat genertes inc coughing with deep inspiration abd softnon tender Active Medications Albuterol Sulfate (Ventolin 0.083% Nebulizer Soln -) 1 amp NEB TID [facility] Last Admin: 08/18/16 06:31 Dose: 1 amp Albuterol/Ipratropium (Duoneb -) 1 amp NEB Q6H PRN PRN Reason: SHORT OF BREATH/WHEEZING Allopurinol (Zyloprim -) 300 mg PO BID [facility] Last Admin: 08/18/16 09:12 Dose: 300 mg Budesonide/Formoterol Fumarate (Symbicort 160/4.5mcg -) 2 puff IH BID [facility] Last Admin: 08/18/16 09:13 Dose: 2 puff Cyanocobalamin (Vitamin B12 -) 1,000 mcg PO DAILY [facility] Last Admin: 08/18/16 09:12 Dose: 1,000 mcg Furosemide (Lasix -) 40 mg PO DAILY [facility] Last Admin: 08/18/16 09:12 Dose: 40 mg Gabapentin (Neurontin -) 300 mg PO BID [facility] Last Admin: 08/18/16 09:12 Dose: 300 mg Glimepiride (Amaryl -) 2 mg PO AM [facility] Last Admin: 08/18/16 06:13 Dose: 2 mg Guaifenesin (Mucinex -) 600 mg PO BID [facility] Last Admin: 08/18/16 09:12 Dose: 600 mg Heparin Sodium (Porcine) (Heparin -) 5,000 unit SQ Q8H-IV [facility] Last Admin: 08/18/16 09:12 Dose: 5,000 unit Insulin Aspart (Novolog Vial Sliding Scale -) 1 vial SQ ACHS [facility] PRN Reason: Protocol Last Admin: 08/18/16 06:16 Dose: 2 unit Methylprednisolone Sodium Succinate (Solu-Medrol -) 80 mg IVPB Q8H-IV [facility] Last Admin: 08/18/16 02:33 Dose: 80 mg Montelukast Sodium (Singulair -) 10 mg PO HS [facility] Last Admin: 08/17/16 21:22 Dose: 10 mg Multivitamins (Total B With C -) 1 each PO DAILY [facility] # exacebation of COPD IV steroids / inhaled steroids/ nebulizer inc nebulizer treatment to Q6h and albuterol Q4 PRN O2 / expectorants emperic abx tx Pulmonary consult Dr Castro # DM sliding scale - adjust as patient on steorids # GI hx colon perforation / clostomy / hernia repairs diverticulitis Problem List - Problems (1) COPD exacerbation Code(s): J44.1 - CHRONIC OBSTRUCTIVE PULMONARY DISEASE W (ACUTE) EXACERBATION (2) Diabetes mellitus Code(s): E11.9 - TYPE 2 DIABETES MELLITUS WITHOUT COMPLICATIONS
[2016-08-18] MEDS ORDERED: ALBUTEROL SO4 0.083% IH SOL 2.5 MG/3 ML VIAL.NEB. NEB PRN (10:09)
[2016-08-18 10:10] LABS: BASOPHIL 0.1 % (0-2.0); MCH 29.9 pg (25.7-33.7); MEAN PLT VOLUME 7.8 fl (7.5-11.1); PLATELET COUNT 110 K/MM3 (134-434); RDW 14.4 % (11.9-15.9); WHITE BLOOD COUNT 9.1 K/mm3 (4.0-10.0)
[2016-08-18 10:20] LABS: CALCIUM 9.2 mg/dL (8.5-10.1)
[2016-08-18] MEDS: ALBUTEROL SO4 2.5/IPRATROPIUM 0.5 INH SOL 3 ML VIAL.NEB. NEB SCH ×2 (11:20→18:02)
[2016-08-18] MEDS ORDERED: INSULIN (NOVOLOG) ASPART 100 UNITS/ML 10ML VIAL ONE (11:40)
--- NOTE | 2016-08-18 11:46 | PN ---
Progress Note, Physician History of Present Illness: PULMONARY ALERT,FEELING BETTER,LESS CONGESTED, LESS WHEEZES - Current Medication List Current Medications: Active Medications Albuterol Sulfate (Ventolin 0.083% Nebulizer Soln -) 1 amp NEB Q4H PRN PRN Reason: SHORT OF BREATH/WHEEZING Albuterol/Ipratropium (Duoneb -) 1 amp NEB QIDR [facility] Allopurinol (Zyloprim -) 300 mg PO BID [facility] Last Admin: 08/18/16 09:12 Dose: 300 mg Budesonide/Formoterol Fumarate (Symbicort 160/4.5mcg -) 2 puff IH BID [facility] Last Admin: 08/18/16 09:13 Dose: 2 puff Cyanocobalamin (Vitamin B12 -) 1,000 mcg PO DAILY [facility] Last Admin: 08/18/16 09:12 Dose: 1,000 mcg Furosemide (Lasix -) 40 mg PO DAILY [facility] Last Admin: 08/18/16 09:12 Dose: 40 mg Gabapentin (Neurontin -) 300 mg PO BID [facility] Last Admin: 08/18/16 09:12 Dose: 300 mg Glimepiride (Amaryl -) 2 mg PO AM [facility] Last Admin: 08/18/16 06:13 Dose: 2 mg Guaifenesin (Mucinex -) 600 mg PO BID [facility] Last Admin: 08/18/16 09:12 Dose: 600 mg Heparin Sodium (Porcine) (Heparin -) 5,000 unit SQ Q8H-IV [facility] Last Admin: 08/18/16 09:12 Dose: 5,000 unit Insulin Aspart (Novolog Vial Sliding Scale -) 1 vial SQ ACHS [facility] PRN Reason: Protocol Last Admin: 08/18/16 06:16 Dose: 2 unit Methylprednisolone Sodium Succinate (Solu-Medrol -) 80 mg IVPB Q8H-IV [facility] Last Admin: 08/18/16 10:24 Dose: 80 mg Montelukast Sodium (Singulair -) 10 mg PO HS [facility] Last Admin: 08/17/16 21:22 Dose: 10 mg Multivitamins (Total B With C -) 1 each PO DAILY [facility] - Objective Vital Signs: Vital Signs Temperature 97.8 F 08/18/16 10:45 Pulse Rate 98 H 08/18/16 10:00 Respiratory Rate 22 08/18/16 10:00 Blood Pressure 109/55 08/18/16 10:00 O2 Sat by Pulse Oximetry (%) 99 08/18/16 07:55 Constitutional: Yes: Well Nourished, Calm Eyes: Yes: WNL HENT: Yes: WNL Neck: Yes: Supple Cardiovascular: Yes: Regular Rate and Rhythm, S1, S2 Respiratory: Yes: Wheezes (ELSY WHEEZES) Gastrointestinal: Yes: Normal Bowel Sounds, Soft Extremities: Yes: WNL Edema: No Labs: CBC, BMP 08/18/16 09:30 08/18/16 09:30 Problem List - Problems (1) Asthma Code(s): J45.909 - UNSPECIFIED ASTHMA, UNCOMPLICATED (2) Asthma attack Code(s): J45.901 - UNSPECIFIED ASTHMA WITH (ACUTE) EXACERBATION Assessment/Plan Problem List - Problems (1) COPD exacerbation Code(s): J44.1 - CHRONIC OBSTRUCTIVE PULMONARY DISEASE W (ACUTE) EXACERBATION (2) Diabetes mellitus Code(s): E11.9 - TYPE 2 DIABETES MELLITUS WITHOUT COMPLICATIONS (3) Acute bronchitis Code(s): J20.9 - ACUTE BRONCHITIS, UNSPECIFIED Assessment/Plan Medrol taper BD TX Symbicort : 2 inhalations BID Monitor off ABX for now : I suspect a Viral illness O2 as needed VTE prophylaxis Mucinex DR CRUZ
[2016-08-18] MEDS: VITAMIN B COMPLEX W/C COMBO TABLET (FP) PO SCH (13:39)
[2016-08-18] MEDS: MONTELUKAST NA 10 MG TABLET PO SCH (21:15)
[2016-08-19] MEDS: ALBUTEROL SO4 2.5/IPRATROPIUM 0.5 INH SOL 3 ML VIAL.NEB. NEB SCH ×4 (00:20→19:01)
[2016-08-19] MEDS: methylPREDNISolone NA SUCC 125 MG/2 ML VIAL IVPB SCH ×4 (01:24→21:28)
[2016-08-19] MEDS: HEPARIN NA (PORCINE) 5,000 UNITS/ML 1ML VIAL SQ SCH ×3 (01:24→17:13)
[2016-08-19] MEDS: GLIMEPIRIDE 2 MG TABLET (FP) PO SCH (06:46)
[2016-08-19] MEDS: INSULIN SLIDING SCALE (NOVOLOG) 1 VIAL SQ SCH ×4 (06:46→21:29)
[2016-08-19] MEDS ORDERED: PT OWN MED DRAWER 7, Y5N ONE (09:42)
[2016-08-19] MEDS: BUDESONIDE/FORMETEROL FUMARATE 160/4.5 mcg INHALER IH SCH ×2 (09:47→21:28)
[2016-08-19] MEDS: GABAPENTIN 300 MG CAPSULE (FP) PO SCH ×2 (09:49→21:27)
[2016-08-19] MEDS: ALLOPURINOL 300 MG TABLET (FP) PO SCH ×2 (09:49→21:27)
[2016-08-19] MEDS: CYANOCOBALAMIN 1,000 MCG TABLET (FP) PO SCH (09:49)
[2016-08-19] MEDS: guaiFENesin 600 MG TABLET.ER (FP) PO SCH ×2 (09:49→21:27)
[2016-08-19] MEDS: VITAMIN B COMPLEX W/C COMBO TABLET (FP) PO SCH (09:49)
[2016-08-19] MEDS: FUROSEMIDE 40 MG TABLET (FP) PO SCH (09:49)
[2016-08-19] MEDS ORDERED: INSULIN (NOVOLOG) ASPART 100 UNITS/ML 10ML VIAL ONE ×3 (10:40→21:26)
--- NOTE | 2016-08-19 10:48 | PN ---
Progress Note (short form) - Note Progress Note: sitting in chair reports "better " Vital Signs Period Temp Pulse Resp BP Sys/Prather Pulse Ox Last 24 Hr 97.3 F-97.6 F 72-82 18-20 107-134/58-65 98-98 neck supple heart reg lungs less rhonchi /wheezing bilat improved air movement abd soft ext no calf tenderness CBC, BMP 08/18/16 09:30 08/18/16 09:30 Active Medications Albuterol Sulfate (Ventolin 0.083% Nebulizer Soln -) 1 amp NEB Q4H PRN PRN Reason: SHORT OF BREATH/WHEEZING Albuterol/Ipratropium (Duoneb -) 1 amp NEB QIDR [facility] Last Admin: 08/19/16 06:30 Dose: 1 amp Allopurinol (Zyloprim -) 300 mg PO BID [facility] Last Admin: 08/19/16 09:49 Dose: 300 mg Budesonide/Formoterol Fumarate (Symbicort 160/4.5mcg -) 2 puff IH BID [facility] Last Admin: 08/19/16 09:47 Dose: 2 puff Cyanocobalamin (Vitamin B12 -) 1,000 mcg PO DAILY [facility] Last Admin: 08/19/16 09:49 Dose: 1,000 mcg Furosemide (Lasix -) 40 mg PO DAILY [facility] Last Admin: 08/19/16 09:49 Dose: 40 mg Gabapentin (Neurontin -) 300 mg PO BID [facility] Last Admin: 08/19/16 09:49 Dose: 300 mg Glimepiride (Amaryl -) 2 mg PO AM [facility] Last Admin: 08/19/16 06:46 Dose: 2 mg Guaifenesin (Mucinex -) 600 mg PO BID [facility] Last Admin: 08/19/16 09:49 Dose: 600 mg Heparin Sodium (Porcine) (Heparin -) 5,000 unit SQ Q8H-IV [facility] Last Admin: 08/19/16 09:48 Dose: 5,000 unit Insulin Aspart (Novolog Vial Sliding Scale -) 1 vial SQ ACHS [facility] PRN Reason: Protocol Last Admin: 08/19/16 10:42 Dose: 8 unit Methylprednisolone Sodium Succinate (Solu-Medrol -) 60 mg IVPB Q8H-IV [facility] Last Admin: 08/19/16 09:49 Dose: 60 mg Montelukast Sodium (Singulair -) 10 mg PO HS [facility] Last Admin: 08/18/16 21:15 Dose: 10 mg Multivitamins (Total B With C -) 1 each PO DAILY [facility] Last Admin: 08/19/16 09:49 Dose: 1 each # exacebation of COPD IV steroids / inhaled steroids/ nebulizer inc nebulizer treatment to Q6h and albuterol Q4 PRN O2 / expectorants emperic abx tx Pulmonary follow up # DM sliding scale - adjust as patient on steroids basal insulin # GI hx colon perforation / clostomy / hernia repairs diverticulitis Problem List - Problems (1) COPD exacerbation Code(s): J44.1 - CHRONIC OBSTRUCTIVE PULMONARY DISEASE W (ACUTE) EXACERBATION (2) Diabetes mellitus Code(s): E11.9 - TYPE 2 DIABETES MELLITUS WITHOUT COMPLICATIONS
--- NOTE | 2016-08-19 10:56 | PN ---
Progress Note (short form) - Note Progress Note: OOB to chair. Reports feeling better today except for congested cough when lying flat. Less SOB. Intake & Output 08/16/16 08/17/16 08/18/16 08/19/16 23:59 23:59 23:59 23:59 Intake Total 600 500 700 50 Output Total 200 Balance 400 500 700 50 Weight 169 lb 167 lb 3 oz 167 lb 3 oz 167 lb 1 oz Last Vital Signs Temp Pulse Resp BP Pulse Ox 97.4 F L 72 18 134/65 98 08/19/16 05:54 08/19/16 05:54 08/19/16 05:54 08/19/16 05:54 08/18/16 20:10 Active Medications Albuterol Sulfate (Ventolin 0.083% Nebulizer Soln -) 1 amp NEB Q4H PRN PRN Reason: SHORT OF BREATH/WHEEZING Albuterol/Ipratropium (Duoneb -) 1 amp NEB QIDR [facility] Last Admin: 08/19/16 06:30 Dose: 1 amp Allopurinol (Zyloprim -) 300 mg PO BID [facility] Last Admin: 08/19/16 09:49 Dose: 300 mg Budesonide/Formoterol Fumarate (Symbicort 160/4.5mcg -) 2 puff IH BID [facility] Last Admin: 08/19/16 09:47 Dose: 2 puff Cyanocobalamin (Vitamin B12 -) 1,000 mcg PO DAILY [facility] Last Admin: 08/19/16 09:49 Dose: 1,000 mcg Furosemide (Lasix -) 40 mg PO DAILY [facility] Last Admin: 08/19/16 09:49 Dose: 40 mg Gabapentin (Neurontin -) 300 mg PO BID [facility] Last Admin: 08/19/16 09:49 Dose: 300 mg Glimepiride (Amaryl -) 2 mg PO AM [facility] Last Admin: 08/19/16 06:46 Dose: 2 mg Guaifenesin (Mucinex -) 600 mg PO BID [facility] Last Admin: 08/19/16 09:49 Dose: 600 mg Heparin Sodium (Porcine) (Heparin -) 5,000 unit SQ Q8H-IV [facility] Last Admin: 08/19/16 09:48 Dose: 5,000 unit Insulin Aspart (Novolog Vial Sliding Scale -) 1 vial SQ ACHS [facility] PRN Reason: Protocol Last Admin: 08/19/16 10:42 Dose: 8 unit Insulin Detemir (Levemir Vial) 10 units SQ HS [facility] Methylprednisolone Sodium Succinate (Solu-Medrol -) 60 mg IVPB Q8H-IV [facility] Last Admin: 08/19/16 09:49 Dose: 60 mg Montelukast Sodium (Singulair -) 10 mg PO HS [facility] Last Admin: 08/18/16 21:15 Dose: 10 mg Multivitamins (Total B With C -) 1 each PO DAILY [facility] Last Admin: 08/19/16 09:49 Dose: 1 each Constitutional: Yes: NAD Eyes: Yes: Conjunctiva Clear, EOM Intact HENT: Yes: Atraumatic, Normocephalic Neck: Yes: Supple, Trachea Midline Cardiovascular: Yes: Regular Rate and Rhythm Respiratory: Yes: Cough, Diminished, On Nasal O2, Rhonchi, Less Wheezes. No: Accessory Muscle Use, Rales, Stridor, Tachypnea ...Inspection: Yes: WNL ...Clubbing: No Gastrointestinal: Yes: Normal Bowel Sounds, Soft, Abdomen, Obese Renal/: Yes: WNL Musculoskeletal: Yes: WNL Extremities: Yes: WNL Edema: No Peripheral Pulses WNL: Yes Integumentary: Yes: WNL Neurological: Yes: WNL, Alert, Oriented ...Motor Strength: WNL Psychiatric: Yes: WNL, Alert, Oriented Labs: Laboratory Results - last 24 hr 08/18/16 08/18/16 08/18/16 11:16 16:18 21:03 POC Glucometer 281 394 173 08/19/16 08/19/16 05:55 10:37 POC Glucometer 254 333 Problem List - Problems (1) COPD exacerbation Code(s): J44.1 - CHRONIC OBSTRUCTIVE PULMONARY DISEASE W (ACUTE) EXACERBATION (2) Diabetes mellitus Code(s): E11.9 - TYPE 2 DIABETES MELLITUS WITHOUT COMPLICATIONS (3) Acute bronchitis Code(s): J20.9 - ACUTE BRONCHITIS, UNSPECIFIED Assessment/Plan Medrol taper BD TX Symbicort : 2 inhalations BID Monitor off ABX for now : I suspect a Viral illness O2 as needed PFTs after stable/discharge VTE prophylaxis Mucinex Dr Langley Problem List - Problems (1) COPD exacerbation Code(s): J44.1 - CHRONIC OBSTRUCTIVE PULMONARY DISEASE W (ACUTE) EXACERBATION (2) Diabetes mellitus Code(s): E11.9 - TYPE 2 DIABETES MELLITUS WITHOUT COMPLICATIONS (3) Acute bronchitis Code(s): J20.9 - ACUTE BRONCHITIS, UNSPECIFIED
[2016-08-19] MEDS: MONTELUKAST NA 10 MG TABLET PO SCH (21:27)
[2016-08-19] MEDS: INSULIN DETEMIR 100 UNITS/ML MDV SQ SCH (21:28)
[2016-08-20] MEDS: ALBUTEROL SO4 2.5/IPRATROPIUM 0.5 INH SOL 3 ML VIAL.NEB. NEB SCH ×4 (00:10→18:26)
[2016-08-20] MEDS: HEPARIN NA (PORCINE) 5,000 UNITS/ML 1ML VIAL SQ SCH ×3 (01:39→18:33)
[2016-08-20] MEDS ORDERED: PT OWN MED DRAWER 7, Y5N ONE ×3 (06:00→21:08)
[2016-08-20] MEDS ORDERED: INSULIN (NOVOLOG) ASPART 100 UNITS/ML 10ML VIAL ONE ×3 (06:12→16:29)
[2016-08-20] MEDS: INSULIN SLIDING SCALE (NOVOLOG) 1 VIAL SQ SCH ×4 (06:13→22:00)
[2016-08-20] MEDS: GLIMEPIRIDE 2 MG TABLET (FP) PO SCH (06:13)
[2016-08-20 07:39] LABS: BASOPHIL 0.1 % (0-2.0); MCH 29.8 pg (25.7-33.7); MCHC 34.3 g/dl (32.0-35.9); MEAN PLT VOLUME 7.8 fl (7.5-11.1); NEUTROPHILS 87.8 % (42.8-82.8); PLATELET COUNT 94 K/MM3 (134-434); RDW 14.5 % (11.9-15.9); WHITE BLOOD COUNT 6.5 K/mm3 (4.0-10.0)
[2016-08-20 07:58] LABS: CALCIUM 8.7 mg/dL (8.5-10.1); COCKROFT - GAULT 82.75; CREATININE 0.7 mg/dL (0.7-1.3); MAGNESIUM 2.1 mg/dL (1.8-2.4)
[2016-08-20] MEDS: BUDESONIDE/FORMETEROL FUMARATE 160/4.5 mcg INHALER IH SCH ×2 (09:18→21:25)
[2016-08-20] MEDS: VITAMIN B COMPLEX W/C COMBO TABLET (FP) PO SCH (09:20)
[2016-08-20] MEDS: guaiFENesin 600 MG TABLET.ER (FP) PO SCH ×2 (09:20→21:26)
[2016-08-20] MEDS: FUROSEMIDE 40 MG TABLET (FP) PO SCH (09:20)
[2016-08-20] MEDS: CYANOCOBALAMIN 1,000 MCG TABLET (FP) PO SCH (09:20)
[2016-08-20] MEDS: ALLOPURINOL 300 MG TABLET (FP) PO SCH ×2 (09:20→21:25)
[2016-08-20] MEDS: GABAPENTIN 300 MG CAPSULE (FP) PO SCH ×2 (09:20→21:25)
[2016-08-20] MEDS: methylPREDNISolone NA SUCC 125 MG/2 ML VIAL IVPB SCH ×2 (09:21→21:26)
--- NOTE | 2016-08-20 13:08 | PN ---
Progress Note, Physician History of Present Illness: pulmonary alert,feeling better,dyspnea improved - Current Medication List Current Medications: Active Medications Albuterol Sulfate (Ventolin 0.083% Nebulizer Soln -) 1 amp NEB Q4H PRN PRN Reason: SHORT OF BREATH/WHEEZING Albuterol/Ipratropium (Duoneb -) 1 amp NEB QIDR [facility] Last Admin: 08/20/16 11:43 Dose: 1 amp Allopurinol (Zyloprim -) 300 mg PO BID [facility] Last Admin: 08/20/16 09:20 Dose: 300 mg Budesonide/Formoterol Fumarate (Symbicort 160/4.5mcg -) 2 puff IH BID [facility] Last Admin: 08/20/16 09:18 Dose: 2 puff Cyanocobalamin (Vitamin B12 -) 1,000 mcg PO DAILY [facility] Last Admin: 08/20/16 09:20 Dose: 1,000 mcg Furosemide (Lasix -) 40 mg PO DAILY [facility] Last Admin: 08/20/16 09:20 Dose: 40 mg Gabapentin (Neurontin -) 300 mg PO BID [facility] Last Admin: 08/20/16 09:20 Dose: 300 mg Glimepiride (Amaryl -) 2 mg PO AM [facility] Last Admin: 08/20/16 06:13 Dose: 2 mg Guaifenesin (Mucinex -) 600 mg PO BID [facility] Last Admin: 08/20/16 09:20 Dose: 600 mg Heparin Sodium (Porcine) (Heparin -) 5,000 unit SQ Q8H-IV [facility] Last Admin: 08/20/16 09:20 Dose: 5,000 unit Insulin Aspart (Novolog Vial Sliding Scale -) 1 vial SQ [facility] PRN Reason: Protocol Last Admin: 08/20/16 11:17 Dose: 4 unit Insulin Detemir (Levemir Vial) 10 units SQ HS [facility] Last Admin: 08/19/16 21:28 Dose: 10 units Methylprednisolone Sodium Succinate (Solu-Medrol -) 40 mg IVPB BID [facility] Last Admin: 08/20/16 09:21 Dose: 40 mg Montelukast Sodium (Singulair -) 10 mg PO HS [facility] Last Admin: 08/19/16 21:27 Dose: 10 mg Multivitamins (Total B With C -) 1 each PO DAILY [facility] Last Admin: 08/20/16 09:20 Dose: 1 each - Objective Vital Signs: Vital Signs Temperature 97.5 F L 08/20/16 09:00 Pulse Rate 84 08/20/16 11:42 Respiratory Rate 20 08/20/16 09:00 Blood Pressure 100/57 08/20/16 09:00 O2 Sat by Pulse Oximetry (%) 97 08/20/16 11:42 Constitutional: Yes: Well Nourished, Calm Eyes: Yes: WNL HENT: Yes: WNL Neck: Yes: WNL Cardiovascular: Yes: Regular Rate and Rhythm, S1, S2 Respiratory: Yes: Wheezes (scattered kandy wheezes) Gastrointestinal: Yes: Normal Bowel Sounds, Soft Extremities: Yes: WNL Edema: No Labs: CBC, BMP 08/20/16 06:50 08/20/16 06:50 Problem List - Problems (1) Asthma Code(s): J45.909 - UNSPECIFIED ASTHMA, UNCOMPLICATED (2) Asthma attack Code(s): J45.901 - UNSPECIFIED ASTHMA WITH (ACUTE) EXACERBATION Assessment/Plan Problem List - Problems (1) COPD exacerbation Code(s): J44.1 - CHRONIC OBSTRUCTIVE PULMONARY DISEASE W (ACUTE) EXACERBATION (2) Diabetes mellitus Code(s): E11.9 - TYPE 2 DIABETES MELLITUS WITHOUT COMPLICATIONS (3) Acute bronchitis Code(s): J20.9 - ACUTE BRONCHITIS, UNSPECIFIED Assessment/Plan Medrol taper BD TX Symbicort : 2 inhalations BID O2 as needed VTE prophylaxis Jackex DR CRUZ
[2016-08-20] MEDS: INSULIN DETEMIR 100 UNITS/ML MDV SQ SCH (21:25)
[2016-08-20] MEDS: MONTELUKAST NA 10 MG TABLET PO SCH (21:25)
--- NOTE | 2016-08-20 22:31 | PN ---
Progress Note, Physician History of Present Illness: No new complaints - Current Medication List Current Medications: Active Medications Albuterol Sulfate (Ventolin 0.083% Nebulizer Soln -) 1 amp NEB Q4H PRN PRN Reason: SHORT OF BREATH/WHEEZING Albuterol/Ipratropium (Duoneb -) 1 amp NEB QIDR [facility] Last Admin: 08/20/16 18:26 Dose: 1 amp Allopurinol (Zyloprim -) 300 mg PO BID [facility] Last Admin: 08/20/16 21:25 Dose: 300 mg Budesonide/Formoterol Fumarate (Symbicort 160/4.5mcg -) 2 puff IH BID [facility] Last Admin: 08/20/16 21:25 Dose: 2 puff Cyanocobalamin (Vitamin B12 -) 1,000 mcg PO DAILY [facility] Last Admin: 08/20/16 09:20 Dose: 1,000 mcg Furosemide (Lasix -) 40 mg PO DAILY [facility] Last Admin: 08/20/16 09:20 Dose: 40 mg Gabapentin (Neurontin -) 300 mg PO BID [facility] Last Admin: 08/20/16 21:25 Dose: 300 mg Glimepiride (Amaryl -) 2 mg PO AM [facility] Last Admin: 08/20/16 06:13 Dose: 2 mg Guaifenesin (Mucinex -) 600 mg PO BID [facility] Last Admin: 08/20/16 21:26 Dose: 600 mg Heparin Sodium (Porcine) (Heparin -) 5,000 unit SQ Q8H-IV [facility] Last Admin: 08/20/16 18:33 Dose: 5,000 unit Insulin Aspart (Novolog Vial Sliding Scale -) 1 vial SQ ACHS [facility] PRN Reason: Protocol Last Admin: 08/20/16 16:31 Dose: 2 unit Insulin Detemir (Levemir Vial) 10 units SQ HS [facility] Last Admin: 08/20/16 21:25 Dose: 10 units Methylprednisolone Sodium Succinate (Solu-Medrol -) 40 mg IVPB BID [facility] Last Admin: 08/20/16 21:26 Dose: 40 mg Montelukast Sodium (Singulair -) 10 mg PO HS [facility] Last Admin: 08/20/16 21:25 Dose: 10 mg Multivitamins (Total B With C -) 1 each PO DAILY [facility] Last Admin: 08/20/16 09:20 Dose: 1 each - Objective Vital Signs: Vital Signs Temperature 97.9 F 08/20/16 16:05 Pulse Rate 83 08/20/16 16:05 Respiratory Rate 18 08/20/16 16:05 Blood Pressure 100/57 08/20/16 09:00 O2 Sat by Pulse Oximetry (%) 97 08/20/16 11:42 Constitutional: Yes: Well Nourished Neck: Yes: Supple Cardiovascular: Yes: WNL, Regular Rate and Rhythm Respiratory: Yes: Rhonchi, Wheezes Gastrointestinal: Yes: WNL, Normal Bowel Sounds, Soft, Abdomen, Obese Labs: CBC, BMP 08/20/16 06:50 08/20/16 06:50 Problem List - Problems (1) COPD exacerbation Assessment/Plan: Cont IV solumedrol Cont inhalers Code(s): J44.1 - CHRONIC OBSTRUCTIVE PULMONARY DISEASE W (ACUTE) EXACERBATION (2) Diabetes mellitus Assessment/Plan: Cont levemir/amaryl Cont sliding scale Steroids increasing glucose Code(s): E11.9 - TYPE 2 DIABETES MELLITUS WITHOUT COMPLICATIONS (3) HTN (hypertension) Assessment/Plan: Bp fluctuating Cont to monitor Cont lasix Check electrolytes Code(s): I10 - ESSENTIAL (PRIMARY) HYPERTENSION
[2016-08-21] MEDS: ALBUTEROL SO4 2.5/IPRATROPIUM 0.5 INH SOL 3 ML VIAL.NEB. NEB SCH ×4 (00:26→18:07)
[2016-08-21] MEDS: HEPARIN NA (PORCINE) 5,000 UNITS/ML 1ML VIAL SQ SCH ×3 (01:43→17:27)
[2016-08-21] MEDS: INSULIN SLIDING SCALE (NOVOLOG) 1 VIAL SQ SCH ×4 (06:09→21:44)
[2016-08-21] MEDS ORDERED: PT OWN MED DRAWER 7, Y5N ONE (06:12)
[2016-08-21] MEDS: GLIMEPIRIDE 2 MG TABLET (FP) PO SCH (06:12)
[2016-08-21] MEDS: guaiFENesin 600 MG TABLET.ER (FP) PO SCH ×2 (09:39→21:42)
[2016-08-21] MEDS: GABAPENTIN 300 MG CAPSULE (FP) PO SCH ×2 (09:44→21:42)
[2016-08-21] MEDS: ALLOPURINOL 300 MG TABLET (FP) PO SCH ×2 (09:44→21:42)
[2016-08-21] MEDS: VITAMIN B COMPLEX W/C COMBO TABLET (FP) PO SCH (09:45)
[2016-08-21] MEDS: FUROSEMIDE 40 MG TABLET (FP) PO SCH (09:45)
[2016-08-21] MEDS: CYANOCOBALAMIN 1,000 MCG TABLET (FP) PO SCH (09:45)
[2016-08-21] MEDS: BUDESONIDE/FORMETEROL FUMARATE 160/4.5 mcg INHALER IH SCH ×2 (09:46→21:43)
[2016-08-21] MEDS: methylPREDNISolone NA SUCC 125 MG/2 ML VIAL IVPB SCH ×2 (09:46→21:42)
--- NOTE | 2016-08-21 12:30 | PN ---
Progress Note (short form) - Note Progress Note: PULMONARY STILL SOUNDS CONGESTED OOB TO CHAIR VSS/AFEBRILE ANICTERIC B/L EXP WHEEZE S1S2 BS+ SOFT NO EDEMA LABS/MEDS/NOTES/IMAGING/REVIEWED (1) COPD exacerbation Code(s): J44.1 - CHRONIC OBSTRUCTIVE PULMONARY DISEASE W (ACUTE) EXACERBATION (2) Diabetes mellitus Code(s): E11.9 - TYPE 2 DIABETES MELLITUS WITHOUT COMPLICATIONS (3) Acute bronchitis Code(s): J20.9 - ACUTE BRONCHITIS, UNSPECIFIED Assessment/Plan Medrol same dose today BD TX Symbicort : 2 inhalations BID O2 as needed VTE prophylaxis Mucinex R ELIEL HERNANDEZ
--- NOTE | 2016-08-21 17:22 | PN ---
Progress Note, Physician History of Present Illness: No new complaints - Current Medication List Current Medications: Active Medications Albuterol Sulfate (Ventolin 0.083% Nebulizer Soln -) 1 amp NEB Q4H PRN PRN Reason: SHORT OF BREATH/WHEEZING Albuterol/Ipratropium (Duoneb -) 1 amp NEB QIDR [facility] Last Admin: 08/21/16 11:33 Dose: 1 amp Allopurinol (Zyloprim -) 300 mg PO BID [facility] Last Admin: 08/21/16 09:44 Dose: 300 mg Budesonide/Formoterol Fumarate (Symbicort 160/4.5mcg -) 2 puff IH BID [facility] Last Admin: 08/21/16 09:46 Dose: 2 puff Cyanocobalamin (Vitamin B12 -) 1,000 mcg PO DAILY [facility] Last Admin: 08/21/16 09:45 Dose: 1,000 mcg Furosemide (Lasix -) 40 mg PO DAILY [facility] Last Admin: 08/21/16 09:45 Dose: 40 mg Gabapentin (Neurontin -) 300 mg PO BID [facility] Last Admin: 08/21/16 09:44 Dose: 300 mg Glimepiride (Amaryl -) 2 mg PO AM [facility] Last Admin: 08/21/16 06:12 Dose: 2 mg Guaifenesin (Mucinex -) 600 mg PO BID [facility] Last Admin: 08/21/16 09:39 Dose: 600 mg Heparin Sodium (Porcine) (Heparin -) 5,000 unit SQ Q8H-IV [facility] Last Admin: 08/21/16 09:45 Dose: 5,000 unit Insulin Aspart (Novolog Vial Sliding Scale -) 1 vial SQ ACHS [facility] PRN Reason: Protocol Last Admin: 08/21/16 13:22 Dose: 10 unit Insulin Detemir (Levemir Vial) 10 units SQ HS [facility] Last Admin: 08/20/16 21:25 Dose: 10 units Methylprednisolone Sodium Succinate (Solu-Medrol -) 40 mg IVPB BID [facility] Last Admin: 08/21/16 09:46 Dose: 40 mg Montelukast Sodium (Singulair -) 10 mg PO HS [facility] Last Admin: 08/20/16 21:25 Dose: 10 mg Multivitamins (Total B With C -) 1 each PO DAILY [facility] Last Admin: 08/21/16 09:45 Dose: 1 each - Objective Vital Signs: Vital Signs Temperature 97.7 F 08/21/16 13:53 Pulse Rate 80 08/21/16 13:53 Respiratory Rate 17 08/21/16 13:53 Blood Pressure 106/60 08/21/16 06:00 O2 Sat by Pulse Oximetry (%) 98 08/21/16 11:33 Constitutional: Yes: Well Nourished Neck: Yes: Supple Cardiovascular: Yes: WNL, Regular Rate and Rhythm Respiratory: Yes: Rhonchi, Wheezes Gastrointestinal: Yes: WNL, Normal Bowel Sounds, Soft, Abdomen, Obese Labs: CBC, BMP 08/20/16 06:50 08/20/16 06:50 Problem List - Problems (1) COPD exacerbation Code(s): J44.1 - CHRONIC OBSTRUCTIVE PULMONARY DISEASE W (ACUTE) EXACERBATION (2) Diabetes mellitus Code(s): E11.9 - TYPE 2 DIABETES MELLITUS WITHOUT COMPLICATIONS (3) HTN (hypertension) Code(s): I10 - ESSENTIAL (PRIMARY) HYPERTENSION
[2016-08-21] MEDS: MONTELUKAST NA 10 MG TABLET PO SCH (21:42)
[2016-08-21] MEDS: INSULIN DETEMIR 100 UNITS/ML MDV SQ SCH (21:43)
[2016-08-22] MEDS: ALBUTEROL SO4 2.5/IPRATROPIUM 0.5 INH SOL 3 ML VIAL.NEB. NEB SCH ×4 (00:06→18:24)
[2016-08-22] MEDS: HEPARIN NA (PORCINE) 5,000 UNITS/ML 1ML VIAL SQ SCH ×3 (02:26→17:02)
[2016-08-22] MEDS ORDERED: PT OWN MED DRAWER 7, Y5N ONE ×2 (05:34→10:08)
[2016-08-22] MEDS: GLIMEPIRIDE 2 MG TABLET (FP) PO SCH (06:36)
[2016-08-22] MEDS: INSULIN SLIDING SCALE (NOVOLOG) 1 VIAL SQ SCH ×4 (06:37→21:51)
[2016-08-22] MEDS ORDERED: INSULIN (NOVOLOG) ASPART 100 UNITS/ML 10ML VIAL ONE ×3 (10:07→21:49)
[2016-08-22] MEDS: guaiFENesin 600 MG TABLET.ER (FP) PO SCH ×2 (10:12→21:51)
[2016-08-22] MEDS: FUROSEMIDE 40 MG TABLET (FP) PO SCH ×2 (10:12→10:14)
[2016-08-22] MEDS: CYANOCOBALAMIN 1,000 MCG TABLET (FP) PO SCH (10:12)
[2016-08-22] MEDS: GABAPENTIN 300 MG CAPSULE (FP) PO SCH ×2 (10:12→21:50)
[2016-08-22] MEDS: VITAMIN B COMPLEX W/C COMBO TABLET (FP) PO SCH (10:12)
[2016-08-22] MEDS: ALLOPURINOL 300 MG TABLET (FP) PO SCH ×2 (10:12→21:53)
[2016-08-22] MEDS: BUDESONIDE/FORMETEROL FUMARATE 160/4.5 mcg INHALER IH SCH ×2 (10:12→21:53)
[2016-08-22] MEDS: methylPREDNISolone NA SUCC 125 MG/2 ML VIAL IVPB SCH ×2 (10:13→21:53)
--- NOTE | 2016-08-22 12:00 | PN ---
Progress Note (short form) - Note Progress Note: PULMONARY STILL SOUNDS CONGESTED OOB TO CHAIR VSS/AFEBRILE ANICTERIC B/L EXP RHONCHI S1S2 BS+ SOFT NO EDEMA LABS/MEDS/NOTES/IMAGING/REVIEWED (1) COPD exacerbation Code(s): J44.1 - CHRONIC OBSTRUCTIVE PULMONARY DISEASE W (ACUTE) EXACERBATION (2) Diabetes mellitus Code(s): E11.9 - TYPE 2 DIABETES MELLITUS WITHOUT COMPLICATIONS (3) Acute bronchitis Code(s): J20.9 - ACUTE BRONCHITIS, UNSPECIFIED Assessment/Plan Medrol same dose today BD TX Symbicort : 2 inhalations BID O2 as needed VTE prophylaxis Mucinex IV FLUIDS IF PO INTAKE IS POOR Dwight JULIAN MD
[2016-08-22 12:14] LABS: MCH 29.5 pg (25.7-33.7); MCHC 33.4 g/dl (32.0-35.9); MEAN CELL VOLUME 88.5 fl (80-96); MEAN PLT VOLUME 7.6 fl (7.5-11.1); PLATELET COUNT 96 K/MM3 (134-434); RDW 14.4 % (11.9-15.9); WHITE BLOOD COUNT 13.1 K/mm3 (4.0-10.0)
[2016-08-22] MEDS ORDERED: SODIUM CHLORIDE 0.45% 1,000 ML IV SCH (12:15)
[2016-08-22 13:39] LABS: ALBUMIN 3.2 g/dl (3.4-5.0); ALK PHOS 60 U/L (45-117); ANION GAP 11 (8-16); BILIRUBIN,TOTAL 0.9 mg/dL (0.2-1.0); CALCIUM 8.8 mg/dL (8.5-10.1); CO2 30 mmol/L (21-32); COCKROFT - GAULT 65.33; CREATININE 0.9 mg/dL (0.7-1.3); GLUCOSE,RANDOM 126 mg/dL (74-106); SGOT/AST 17 U/L (15-37); SGPT/ALT 37 U/L (12-78); TOT PROT 5.7 g/dl (6.4-8.2)
[2016-08-22] MEDS: MONTELUKAST NA 10 MG TABLET PO SCH (21:51)
[2016-08-22] MEDS: INSULIN DETEMIR 100 UNITS/ML MDV SQ SCH (21:51)
--- NOTE | 2016-08-22 23:46 | PN ---
Progress Note, Physician - Current Medication List Current Medications: Active Medications Albuterol Sulfate (Ventolin 0.083% Nebulizer Soln -) 1 amp NEB Q4H PRN PRN Reason: SHORT OF BREATH/WHEEZING Albuterol/Ipratropium (Duoneb -) 1 amp NEB QIDR [facility] Last Admin: 08/22/16 18:24 Dose: 1 amp Allopurinol (Zyloprim -) 300 mg PO BID [facility] Last Admin: 08/22/16 21:53 Dose: 300 mg Budesonide/Formoterol Fumarate (Symbicort 160/4.5mcg -) 2 puff IH BID [facility] Last Admin: 08/22/16 21:53 Dose: 2 puff Cyanocobalamin (Vitamin B12 -) 1,000 mcg PO DAILY [facility] Last Admin: 08/22/16 10:12 Dose: 1,000 mcg Furosemide (Lasix -) 40 mg PO DAILY [facility] Last Admin: 08/22/16 10:14 Dose: Not Given Gabapentin (Neurontin -) 300 mg PO BID [facility] Last Admin: 08/22/16 21:50 Dose: 300 mg Glimepiride (Amaryl -) 2 mg PO AM [facility] Last Admin: 08/22/16 06:36 Dose: 2 mg Guaifenesin (Mucinex -) 600 mg PO BID [facility] Last Admin: 08/22/16 21:51 Dose: 600 mg Heparin Sodium (Porcine) (Heparin -) 5,000 unit SQ Q8H-IV [facility] Last Admin: 08/22/16 17:02 Dose: 5,000 unit Insulin Aspart (Novolog Vial Sliding Scale -) 1 vial SQ ACHS [facility] PRN Reason: Protocol Last Admin: 08/22/16 21:51 Dose: 6 unit Insulin Detemir (Levemir Vial) 10 units SQ HS [facility] Last Admin: 08/22/16 21:51 Dose: 10 units Methylprednisolone Sodium Succinate (Solu-Medrol -) 40 mg IVPB BID [facility] Last Admin: 08/22/16 21:53 Dose: 40 mg Montelukast Sodium (Singulair -) 10 mg PO HS [facility] Last Admin: 08/22/16 21:51 Dose: 10 mg Multivitamins (Total B With C -) 1 each PO DAILY [facility] Last Admin: 08/22/16 10:12 Dose: 1 each - Objective Vital Signs: Vital Signs Temperature 98.1 F 08/22/16 18:00 Pulse Rate 85 08/22/16 18:00 Respiratory Rate 20 08/22/16 20:20 Blood Pressure 115/61 08/22/16 18:00 O2 Sat by Pulse Oximetry (%) 98 08/22/16 20:20 Labs: CBC, BMP 08/22/16 11:59 08/22/16 13:24
[2016-08-23] MEDS: ALBUTEROL SO4 2.5/IPRATROPIUM 0.5 INH SOL 3 ML VIAL.NEB. NEB SCH ×2 (00:11→05:39)
[2016-08-23] MEDS: HEPARIN NA (PORCINE) 5,000 UNITS/ML 1ML VIAL SQ SCH (01:28)
[2016-08-23] MEDS: INSULIN SLIDING SCALE (NOVOLOG) 1 VIAL SQ SCH ×4 (06:33→22:19)
[2016-08-23] MEDS: GLIMEPIRIDE 2 MG TABLET (FP) PO SCH (06:33)
[2016-08-23] MEDS ORDERED: PT OWN MED DRAWER 7, Y5N ONE ×2 (09:04→21:19)
[2016-08-23] MEDS: BUDESONIDE/FORMETEROL FUMARATE 160/4.5 mcg INHALER IH SCH ×2 (09:05→21:50)
[2016-08-23] MEDS: FUROSEMIDE 40 MG TABLET (FP) PO SCH (09:05)
[2016-08-23] MEDS: GABAPENTIN 300 MG CAPSULE (FP) PO SCH ×2 (09:06→22:05)
[2016-08-23] MEDS: guaiFENesin 600 MG TABLET.ER (FP) PO SCH ×2 (09:06→22:05)
[2016-08-23] MEDS: CYANOCOBALAMIN 1,000 MCG TABLET (FP) PO SCH (09:06)
[2016-08-23] MEDS: VITAMIN B COMPLEX W/C COMBO TABLET (FP) PO SCH (09:06)
[2016-08-23] MEDS: ALLOPURINOL 300 MG TABLET (FP) PO SCH ×2 (09:06→22:05)
[2016-08-23] MEDS: methylPREDNISolone NA SUCC 125 MG/2 ML VIAL IVPB SCH ×2 (09:06→22:04)
[2016-08-23] MEDS ORDERED: INSULIN (NOVOLOG) ASPART 100 UNITS/ML 10ML VIAL ONE ×2 (11:10→22:17)
--- NOTE | 2016-08-23 16:27 | PN ---
Progress Note, Physician History of Present Illness: pulmonary alert,nad,-sob - Current Medication List Current Medications: Active Medications Allopurinol (Zyloprim -) 300 mg PO BID [facility] Last Admin: 08/23/16 09:06 Dose: 300 mg Budesonide/Formoterol Fumarate (Symbicort 160/4.5mcg -) 2 puff IH BID [facility] Last Admin: 08/23/16 09:05 Dose: 2 puff Cyanocobalamin (Vitamin B12 -) 1,000 mcg PO DAILY [facility] Last Admin: 08/23/16 09:06 Dose: 1,000 mcg Furosemide (Lasix -) 40 mg PO DAILY [facility] Last Admin: 08/23/16 09:05 Dose: Not Given Gabapentin (Neurontin -) 300 mg PO BID [facility] Last Admin: 08/23/16 09:06 Dose: 300 mg Glimepiride (Amaryl -) 2 mg PO AM [facility] Last Admin: 08/23/16 06:33 Dose: 2 mg Guaifenesin (Mucinex -) 600 mg PO BID [facility] Last Admin: 08/23/16 09:06 Dose: 600 mg Insulin Aspart (Novolog Vial Sliding Scale -) 1 vial SQ [facility] PRN Reason: Protocol Last Admin: 08/23/16 16:18 Dose: Not Given Insulin Detemir (Levemir Vial) 10 units SQ [facility] Last Admin: 08/22/16 21:51 Dose: 10 units Methylprednisolone Sodium Succinate (Solu-Medrol -) 40 mg IVPB BID [facility] Last Admin: 08/23/16 09:06 Dose: 40 mg Montelukast Sodium (Singulair -) 10 mg PO HS [facility] Last Admin: 08/22/16 21:51 Dose: 10 mg Multivitamins (Total B With C -) 1 each PO DAILY [facility] Last Admin: 08/23/16 09:06 Dose: 1 each - Objective Vital Signs: Vital Signs Temperature 98.0 F 08/23/16 14:10 Pulse Rate 74 08/23/16 14:10 Respiratory Rate 20 08/23/16 11:40 Blood Pressure 103/56 08/23/16 14:10 O2 Sat by Pulse Oximetry (%) 98 08/23/16 09:00 Constitutional: Yes: Well Nourished, Calm Eyes: Yes: WNL HENT: Yes: WNL Neck: Yes: WNL Cardiovascular: Yes: Regular Rate and Rhythm, S1, S2 Respiratory: Yes: Wheezes (kandy wheezes) Gastrointestinal: Yes: Normal Bowel Sounds, Soft Extremities: Yes: WNL Edema: No Labs: CBC, BMP 08/22/16 11:59 08/22/16 13:24 Problem List - Problems (1) Asthma Code(s): J45.909 - UNSPECIFIED ASTHMA, UNCOMPLICATED (2) Asthma attack Code(s): J45.901 - UNSPECIFIED ASTHMA WITH (ACUTE) EXACERBATION Assessment/Plan Problem List - Problems (1) COPD exacerbation Code(s): J44.1 - CHRONIC OBSTRUCTIVE PULMONARY DISEASE W (ACUTE) EXACERBATION (2) Diabetes mellitus Code(s): E11.9 - TYPE 2 DIABETES MELLITUS WITHOUT COMPLICATIONS (3) Acute bronchitis Code(s): J20.9 - ACUTE BRONCHITIS, UNSPECIFIED Assessment/Plan Medrol taper BD TX Symbicort : 2 inhalations BID O2 as needed VTE prophylaxis Mucinex Prednisone am DR CRUZ
[2016-08-23] MEDS: MONTELUKAST NA 10 MG TABLET PO SCH (22:05)
[2016-08-23] MEDS: INSULIN DETEMIR 100 UNITS/ML MDV SQ SCH (22:06)
--- NOTE | 2016-08-23 22:56 | PN ---
Progress Note, Physician History of Present Illness: No new complaints - Current Medication List Current Medications: Active Medications Allopurinol (Zyloprim -) 300 mg PO BID [facility] Last Admin: 08/23/16 22:05 Dose: 300 mg Budesonide/Formoterol Fumarate (Symbicort 160/4.5mcg -) 2 puff IH BID [facility] Last Admin: 08/23/16 09:05 Dose: 2 puff Cyanocobalamin (Vitamin B12 -) 1,000 mcg PO DAILY [facility] Last Admin: 08/23/16 09:06 Dose: 1,000 mcg Furosemide (Lasix -) 40 mg PO DAILY [facility] Last Admin: 08/23/16 09:05 Dose: Not Given Gabapentin (Neurontin -) 300 mg PO BID [facility] Last Admin: 08/23/16 22:05 Dose: 300 mg Glimepiride (Amaryl -) 2 mg PO AM [facility] Last Admin: 08/23/16 06:33 Dose: 2 mg Guaifenesin (Mucinex -) 600 mg PO BID [facility] Last Admin: 08/23/16 22:05 Dose: 600 mg Insulin Aspart (Novolog Vial Sliding Scale -) 1 vial SQ [facility] PRN Reason: Protocol Last Admin: 08/23/16 22:19 Dose: 6 unit Insulin Detemir (Levemir Vial) 10 units SQ [facility] Last Admin: 08/23/16 22:06 Dose: 10 units Methylprednisolone Sodium Succinate (Solu-Medrol -) 40 mg IVPB BID [facility] Last Admin: 08/23/16 22:04 Dose: 40 mg Montelukast Sodium (Singulair -) 10 mg PO HS [facility] Last Admin: 08/23/16 22:05 Dose: 10 mg Multivitamins (Total B With C -) 1 each PO DAILY [facility] Last Admin: 08/23/16 09:06 Dose: 1 each - Objective Vital Signs: Vital Signs Temperature 98.0 F 08/23/16 14:10 Pulse Rate 74 08/23/16 14:10 Respiratory Rate 20 08/23/16 11:40 Blood Pressure 130/70 08/23/16 21:40 O2 Sat by Pulse Oximetry (%) 98 08/23/16 09:00 Neck: Yes: Supple Cardiovascular: Yes: WNL, Regular Rate and Rhythm Respiratory: Yes: Rhonchi Gastrointestinal: Yes: WNL, Normal Bowel Sounds, Soft, Abdomen, Obese Labs: CBC, BMP 08/22/16 11:59 08/22/16 13:24 Problem List - Problems (1) COPD exacerbation Assessment/Plan: Cont IV solumedrol Probably change to prednisone in am DC planning' Will get PT eval Cont inhalers Code(s): J44.1 - CHRONIC OBSTRUCTIVE PULMONARY DISEASE W (ACUTE) EXACERBATION (2) Diabetes mellitus Assessment/Plan: Cont levemir/amaryl Cont sliding scale Steroids increasing glucose Code(s): E11.9 - TYPE 2 DIABETES MELLITUS WITHOUT COMPLICATIONS (3) HTN (hypertension) Assessment/Plan: Bp fluctuating Cont to monitor Cont lasix Check electrolytes Code(s): I10 - ESSENTIAL (PRIMARY) HYPERTENSION
[2016-08-24] MEDS ORDERED: INSULIN (NOVOLOG) ASPART 100 UNITS/ML 10ML VIAL ONE ×2 (05:56→21:34)
[2016-08-24] MEDS ORDERED: PT OWN MED DRAWER 7, Y5N ONE ×3 (05:58→21:27)
[2016-08-24] MEDS: INSULIN SLIDING SCALE (NOVOLOG) 1 VIAL SQ SCH ×4 (06:01→21:36)
[2016-08-24] MEDS: GLIMEPIRIDE 2 MG TABLET (FP) PO SCH (06:45)
[2016-08-24] MEDS: VITAMIN B COMPLEX W/C COMBO TABLET (FP) PO SCH (09:14)
[2016-08-24] MEDS: GABAPENTIN 300 MG CAPSULE (FP) PO SCH ×2 (09:14→21:32)
[2016-08-24] MEDS: guaiFENesin 600 MG TABLET.ER (FP) PO SCH ×2 (09:14→21:32)
[2016-08-24] MEDS: BUDESONIDE/FORMETEROL FUMARATE 160/4.5 mcg INHALER IH SCH ×2 (09:14→21:32)
[2016-08-24] MEDS: CYANOCOBALAMIN 1,000 MCG TABLET (FP) PO SCH (09:14)
[2016-08-24] MEDS: ALLOPURINOL 300 MG TABLET (FP) PO SCH ×2 (09:14→21:32)
[2016-08-24] MEDS: FUROSEMIDE 40 MG TABLET (FP) PO SCH (09:15)
[2016-08-24] MEDS: methylPREDNISolone NA SUCC 125 MG/2 ML VIAL IVPB SCH (10:39)
--- NOTE | 2016-08-24 17:52 | PN ---
Progress Note (short form) - Note Progress Note: PULMONARY LESS CONGESTED OOB TO CHAIR/EATING DINNER VSS/AFEBRILE ANICTERIC B/L EXP RHONCHI S1S2 BS+ SOFT NO EDEMA LABS/MEDS/NOTES/IMAGING/REVIEWED (1) COPD exacerbation Code(s): J44.1 - CHRONIC OBSTRUCTIVE PULMONARY DISEASE W (ACUTE) EXACERBATION (2) Diabetes mellitus Code(s): E11.9 - TYPE 2 DIABETES MELLITUS WITHOUT COMPLICATIONS (3) Acute bronchitis Code(s): J20.9 - ACUTE BRONCHITIS, UNSPECIFIED Assessment/Plan Medrol changed to prednisone BD TX Symbicort : 2 inhalations BID O2 as needed VTE prophylaxis Mucinex R ELIEL HERNANDEZ
[2016-08-24] MEDS: MONTELUKAST NA 10 MG TABLET PO SCH (21:32)
[2016-08-24] MEDS: INSULIN DETEMIR 100 UNITS/ML MDV SQ SCH (21:32)
--- NOTE | 2016-08-24 22:50 | PN ---
Progress Note, Physician History of Present Illness: No new complaints - Current Medication List Current Medications: Active Medications Allopurinol (Zyloprim -) 300 mg PO BID [facility] Last Admin: 08/24/16 21:32 Dose: 300 mg Budesonide/Formoterol Fumarate (Symbicort 160/4.5mcg -) 2 puff IH BID [facility] Last Admin: 08/24/16 21:32 Dose: 2 puff Cyanocobalamin (Vitamin B12 -) 1,000 mcg PO DAILY [facility] Last Admin: 08/24/16 09:14 Dose: 1,000 mcg Furosemide (Lasix -) 40 mg PO DAILY [facility] Last Admin: 08/24/16 09:15 Dose: Not Given Gabapentin (Neurontin -) 300 mg PO BID [facility] Last Admin: 08/24/16 21:32 Dose: 300 mg Glimepiride (Amaryl -) 2 mg PO AM [facility] Last Admin: 08/24/16 06:45 Dose: 2 mg Guaifenesin (Mucinex -) 600 mg PO BID [facility] Last Admin: 08/24/16 21:32 Dose: 600 mg Insulin Aspart (Novolog Vial Sliding Scale -) 1 vial SQ [facility] PRN Reason: Protocol Last Admin: 08/24/16 21:36 Dose: 4 unit Insulin Detemir (Levemir Vial) 10 units SQ HS [facility] Last Admin: 08/24/16 21:32 Dose: 10 units Montelukast Sodium (Singulair -) 10 mg PO HS [facility] Last Admin: 08/24/16 21:32 Dose: 10 mg Multivitamins (Total B With C -) 1 each PO DAILY [facility] Last Admin: 08/24/16 09:14 Dose: 1 each - Objective Vital Signs: Vital Signs Temperature 99.8 F H 08/24/16 22:15 Pulse Rate 91 H 08/24/16 22:15 Respiratory Rate 20 08/24/16 22:15 Blood Pressure 97/53 08/24/16 22:15 O2 Sat by Pulse Oximetry (%) 92 L 08/24/16 15:59 Constitutional: Yes: Well Nourished Neck: Yes: Supple Cardiovascular: Yes: WNL, Regular Rate and Rhythm Respiratory: Yes: WNL, Wheezes Gastrointestinal: Yes: WNL, Normal Bowel Sounds, Soft Labs: CBC, BMP 08/22/16 11:59 08/22/16 13:24 Problem List - Problems (1) COPD exacerbation Assessment/Plan: Pt feeling unsteady today DC planning for am Spoke to pt and his daughter and need for ?[employer] vs STR Cont prednisone Code(s): J44.1 - CHRONIC OBSTRUCTIVE PULMONARY DISEASE W (ACUTE) EXACERBATION (2) Diabetes mellitus Assessment/Plan: Cont levemir/amaryl Cont sliding scale Steroids increasing glucose Code(s): E11.9 - TYPE 2 DIABETES MELLITUS WITHOUT COMPLICATIONS (3) HTN (hypertension) Assessment/Plan: BP fluctuating Cont to monitor Cont lasix Code(s): I10 - ESSENTIAL (PRIMARY) HYPERTENSION
[2016-08-25] MEDS ORDERED: PT OWN MED DRAWER 7, Y5N ONE ×2 (06:23→09:25)
[2016-08-25] MEDS: GLIMEPIRIDE 2 MG TABLET (FP) PO SCH (06:31)
[2016-08-25] MEDS: INSULIN SLIDING SCALE (NOVOLOG) 1 VIAL SQ SCH ×2 (06:31→11:16)
[2016-08-25] MEDS: ALLOPURINOL 300 MG TABLET (FP) PO SCH (09:27)
[2016-08-25] MEDS: VITAMIN B COMPLEX W/C COMBO TABLET (FP) PO SCH (09:33)
[2016-08-25] MEDS: BUDESONIDE/FORMETEROL FUMARATE 160/4.5 mcg INHALER IH SCH (09:33)
[2016-08-25] MEDS: FUROSEMIDE 40 MG TABLET (FP) PO SCH (09:33)
[2016-08-25] MEDS: guaiFENesin 600 MG TABLET.ER (FP) PO SCH (09:33)
[2016-08-25] MEDS: GABAPENTIN 300 MG CAPSULE (FP) PO SCH (09:33)
[2016-08-25] MEDS: CYANOCOBALAMIN 1,000 MCG TABLET (FP) PO SCH (09:33)
[2016-08-25] MEDS ORDERED: predniSONE 20 MG TABLET (UD) PO SCH (13:00)
--- NOTE | 2016-08-25 13:01 | PN ---
Progress Note (short form) - Note Progress Note: PULMONARY LESS CONGESTED OOB TO CHAIR/ VSS/AFEBRILE ANICTERIC B/L EXP RHONCHI S1S2 BS+ SOFT NO EDEMA LABS/MEDS/NOTES/IMAGING/REVIEWED (1) COPD exacerbation Code(s): J44.1 - CHRONIC OBSTRUCTIVE PULMONARY DISEASE W (ACUTE) EXACERBATION (2) Diabetes mellitus Code(s): E11.9 - TYPE 2 DIABETES MELLITUS WITHOUT COMPLICATIONS (3) Acute bronchitis Code(s): J20.9 - ACUTE BRONCHITIS, UNSPECIFIED Agree with discharge planning BD TX/Taper prednisone as an outpatient Symbicort : 2 inhalations BID O2 as needed VTE prophylaxis Mucinex R ELIEL HERNANDEZ
[2016-08-25 14:23] VITALS: BP 105/49; PULSE 69; TEMP 98
== END 2016-08-25 16:25 | disposition home health service (06) | DRG 191 ==
LOC: JER 14:38 → JERBED 21:35 → J6S 08-16 01:13
PROVIDERS: ADMIT Internal Medicine; ATTEND Family Medicine
DX: J44.0 Chronic obstructive pulmonary disease with (acute) lower respiratory infection (principal); J45.901 Unspecified asthma with (acute) exacerbation; J44.1 Chronic obstructive pulmonary disease with (acute) exacerbation; J20.9 Acute bronchitis, unspecified; E11.9 Type 2 diabetes mellitus without complications; Z93.3 Colostomy status; Z79.84 Long term (current) use of oral hypoglycemic drugs; I10 Essential (primary) hypertension
CPT/HCPCS: 36415; 71010-TC; 80048; 80053; 82550; 83735; 83880; 84484; 85025; 85027; 93005; 93010; 94010; 94640; 94761; 97116-GP; 97162-PG; 99284-25; J1644

== ENCOUNTER 2017-03-17 11:02 | Emergency (ER) | payer OTHER ==
[2017-03-17 11:34] VITALS: BMI 27.3
[2017-03-17] MEDS ORDERED: DIPHTH,PERTUSS(ACELL),TET 0.5 ML DISP.SYRIN IM ONE (12:17)
--- NOTE | 2017-03-17 12:40 | PDOC ---
History of Present Illness - General History Source: Patient, Family (Son) Exam Limitations: No Limitations - History of Present Illness Initial Comments: 03/17/17 12:54 The patient is a 86 year old male, with a significant past medical history of Asthma, COPD, DM who presents to the emergency department s/p mechanical fall today with head laceration. Patient states he fell in the kitchen and stripped over his cane. Patient sustained a occipital head laceration. He reports blurry vision and headache however denies any weakness, tingling or numbness. Patient reports pain to the area and to his R shoulder and L leg. As per son, this is the patient's second fall this month and presents to the ED for further evaluation. Patient sustained chest injury during his previous fall which he reports is well healing. Note: Pt denied use of blood thinners. Patient denies chest pain, headache or dizziness. He denies fever, chills, abdominal pain, nausea, vomit, diarrhea or constipation. He denies dysuria, frequency, urgency or hematuria. Patient denies sick contacts or recent travel. Allergies: quinine sulfate Past surgical history: Colostomy, hernia repair Social history: None PCP: Dr. Allison Jin <Crystal Garcia - Last Filed: 03/17/17 12:54> <Gonzales Grant - Last Filed: 03/17/17 15:22> <Yamile Srivastava - Last Filed: 03/17/17 16:43> - General Chief Complaint: Laceration Stated Complaint: FALL Time Seen by Provider: 03/17/17 11:56 Past History <Crystal Garcia - Last Filed: 03/17/17 12:54> <Gonzales Grant - Last Filed: 03/17/17 15:22> - Past Medical History Asthma: Yes COPD: Yes Diabetes: Yes - Surgical History Abdominal Surgery: Yes (COLOSTOMY,HERNIA REPAIR) - Suicide/Smoking/Psychosocial Hx Smoking Status: No Smoking History: Never smoked Have you smoked in the past 12 months: No Number of Cigarettes Smoked Daily: 0 Information on smoking cessation initiated: No Hx Alcohol Use: No Drug/Substance Use Hx: No Substance Use Type: None Hx Substance Use Treatment: No <Yamile Srivastava - Last Filed: 03/17/17 16:43> - Past Medical History Allergies/Adverse Reactions: Allergies Allergy/AdvReac Type Severity Reaction Status Date / Time quinine sulfate [From Quine] Allergy Verified 08/15/16 14:46 Home Medications: Ambulatory Orders Albuterol 0.083% Nebulizer Deanna [Ventolin 0.083% Nebulizer Soln -] 1 neb NEB QID 08/15/16 Allopurinol [Zyloprim -] 300 mg PO BID 08/15/16 Budesonide/Formeterol Fumarate [SYMBICORT 160/4.5mcg -] 1 inh PO DAILY 08/15/16 Cyanocobalamin (Vitamin B-12) [Vitamin B-12] 1,000 mcg SL DAILY 08/15/16 Folic Acid/B Complex C No.17 [Virt-Harman Plus Tablet] 5 mg PO DAILY 08/15/16 Furosemide [Lasix] 40 mg PO DAILY 08/15/16 Gabapentin [Neurontin -] 300 mg PO BID 08/15/16 Glimepiride [Amaryl] 2 mg PO DAILY 08/15/16 Ipratropium [place] 0.2 mg IH DAILY 08/15/16 Montelukast Na [Singulair -] 10 mg PO HS 08/15/16 Polyethylene Glycol 3350 [Miralax 119 gm Btl -] 17 gm PO DAILY 08/15/16 Potassium Chloride [K-Dur -] 20 meq PO DAILY 08/15/16 Insulin (Levemir) [Levemir Vial] 10 units SQ HS ml 08/25/16 Prednisone [Deltasone -] 20 mg PO BID #20 tablet 08/25/16 Review of Systems - Review of Systems Able to Perform ROS?: Yes Comments:: 03/17/17 12:55 GENERAL/CONSTITUTIONAL: No fever or chills. No weakness. HEAD, EYES, EARS, NOSE AND THROAT: No change in vision. No ear pain or discharge. No sore throat. CARDIOVASCULAR: No chest pain or shortness of breath. RESPIRATORY: No cough, wheezing, or hemoptysis. GASTROINTESTINAL: No nausea, vomiting, diarrhea . No constipation. GENITOURINARY: No dysuria, frequency, or change in urination. MUSCULOSKELETAL: No joint or muscle swelling or pain. No neck or back pain. SKIN: No rash NEUROLOGIC: + headache. No vertigo, loss of consciousness, or change in strength /sensation. ENDOCRINE: No increased thirst. No abnormal weight change. HEMATOLOGIC/LYMPHATIC: No anemia, easy bleeding, or history of blood clots. ALLERGIC/IMMUNOLOGIC: No hives or skin allergy. <Crystal Garcia - Last Filed: 03/17/17 12:54> *Physical Exam - Vital Signs Last Vital Signs Temp Pulse Resp BP Pulse Ox 97.7 F 98 H 18 116/59 97 03/17/17 11:30 03/17/17 11:30 03/17/17 11:30 03/17/17 11:30 03/17/17 11:30 - Physical Exam Comments: 03/17/17 12:55 GENERAL: Awake, alert, and fully oriented, in no acute distress HEAD: No signs of trauma EYES: PERRLA, EOMI, sclera anicteric, conjunctiva clear ENT: Auricles normal inspection, hearing grossly normal, nares patent, oropharynx clear without exudates. Moist mucosa NECK: Normal ROM, supple, no lymphadenopathy, JVD, or masses LUNGS: Breath sounds equal, clear to auscultation bilaterally. No wheezes, and no crackles HEART: Regular rate and rhythm, normal S1 and S2, no murmurs, rubs or gallops ABDOMEN: +Large ventral hernia. Soft, nontender, normoactive bowel sounds. No guarding, no rebound. No masses EXTREMITIES: +Limited ROM to R shoulder secondary to pain but no palpable deformity. +Pelvis is stable. No edema. No clubbing or cyanosis. No cords, erythema, or tenderness NEUROLOGICAL: Cranial nerves II through XII grossly intact. Normal speech, normal gait SKIN:+ 3 cm laceration to the back of his head. +Ecchymosis anterior chest wall. Warm, Dry, normal turgor, no rashes or lesions noted. <Crystal Garcia - Last Filed: 03/17/17 12:54> - Vital Signs Last Vital Signs Temp Pulse Resp BP Pulse Ox 97.7 F 98 H 18 116/59 97 03/17/17 11:30 03/17/17 11:30 03/17/17 11:30 03/17/17 11:30 03/17/17 11:30 <Gonzales Grant - Last Filed: 03/17/17 15:22> - Vital Signs Last Vital Signs Temp Pulse Resp BP Pulse Ox 97.7 F 98 H 18 116/59 97 11/02/17 11:30 03/17/17 11:30 03/17/17 11:30 03/17/17 11:30 03/17/17 11:30 <Yamile Srivastava - Last Filed: 03/17/17 16:43> Procedures - Laceration/Wound Repair Both Posterior Head Wound Length: 2.6 to 5.0 cm Wound Explored: clean, no foreign body present Wound's Depth, Shape: superficial, linear Irrigated w/ Saline: Yes Betadine Prep: No Anesthesia: 1% Lidocaine Amount of Anesthetic (ccs): 10 Wound Debrided: minimal Wound Repaired With: Sutures Suture Size/Type: 4:0, proline Number of Sutures: 7 Sterile Dressing Applied: Yes Splint Applied: No Sling Applied: No <Gonzales Grant - Last Filed: 03/17/17 15:22> Heart Score/ECG Review - ECG Intrepretation Comment:: 03/17/17 14:44 sinus at 89, rbbb, lafb, no acute st/t wave findings <Yamile Srivastava - Last Filed: 03/17/17 16:43> ED Treatment Course - Medications Given in the ED: ED Medications Discontinued Medications Generic Name Dose Route Start Last Admin Trade Name Freq PRN Reason Stop Dose Admin Diphtheria/Tetanus/Acell Pertussis 0.5 ml 03/17/17 12:17 03/17/17 12:43 Boostrix - IM 03/17/17 12:18 0.5 ml .ONCE ONE Administration <Crystal Garcia - Last Filed: 03/17/17 12:54> - LABORATORY CBC & Chemistry Diagram: 03/17/17 12:43 03/17/17 12:43 - ADDITIONAL ORDERS Additional order review: Laboratory Results 03/17/17 03/17/17 03/17/17 12:43 12:43 12:43 PT with INR 10.90 INR 0.96 PTT (Actin FS) 29.6 Sodium 136 Potassium 4.3 Chloride 101 Carbon Dioxide 30 Anion Gap 5 L BUN 35 H D Creatinine 1.1 D Creat Clearance w eGFR > 60 Random Glucose 285 H D Calcium 9.1 Magnesium 1.9 Total Bilirubin 1.1 H D AST 15 ALT 23 D Alkaline Phosphatase 81 D Total Protein 6.5 Albumin 3.6 Urine Color Straw Urine Appearance Clear Urine pH 5.0 Ur Specific [place] 1.009 Urine Protein Negative Urine Glucose (UA) 1+ H Urine Ketones Trace H Urine Blood Negative Urine Nitrite Negative Urine Bilirubin Negative Urine Urobilinogen Negative 03/17/17 12:43 RBC 4.46 MCV 88.3 MCHC 33.2 RDW 14.6 MPV 7.3 L Neutrophils % 93.4 H Lymphocytes % 3.6 L D Monocytes % 2.4 L Eosinophils % 0.3 D Basophils % 0.3 - Medications Given in the ED: ED Medications Discontinued Medications Generic Name Dose Route Start Last Admin Trade Name Freq PRN Reason Stop Dose Admin Diphtheria/Tetanus/Acell Pertussis 0.5 ml 03/17/17 12:17 03/17/17 12:43 Boostrix - IM 03/17/17 12:18 0.5 ml .ONCE ONE Administration <Gonzales Grant - Last Filed: 03/17/17 15:22> - LABORATORY CBC & Chemistry Diagram: 03/17/17 12:43 03/17/17 12:43 - RADIOLOGY Radiology Studies Ordered: Category Date Time Status CERVICAL SPINE CT W/O CONTR [CT] Stat CT Scan 03/17/17 12:[address] WITHOUT CONTRAST [CT] Stat CT Scan 03/17/17 12:15 Ordered CHEST PA & LAT [RAD] Stat Radiology 03/17/17 12:15 Ordered SHOULDER-RIGHT [RAD] Stat Radiology 03/17/17 12:16 Ordered <Yamile Srivastava - Last Filed: 03/17/17 16:43> Medical Decision Making - Medical Decision Making 03/17/17 12:43 a/p: 86yo male with mechanical fall and head lac -head ct -xray chest and shoulder from fall a week ago -labs -lac repair -update tetanus -neuro intact 03/17/17 16:39 pt has been sutured with 7 stitches. pt neuro intact. discussed all imaging results. pt stable for d/c to home with family. discussed need to use the walker and not the cane. DIscussed all reasons to return to the ED. Pt will be d /c home with his son and will be staying the weekend with his daughter. <Yamile Srivastava - Last Filed: 03/17/17 16:43> *DC/Admit/Observation/Transfer - Attestations Scribe Attestion: 03/17/17 12:56 Documentation prepared by Crystal Garcia, acting as electromedical service engineer for Yamile Srivastava DO, MD/. <Crystla Garcia - Last Filed: 03/17/17 12:54> <Gonzales Grant - Last Filed: 03/17/17 15:22> - Discharge Dispostion Admit: No - Attestations Physician Attestion: 03/17/17 16:43 I, Dr. Yamile Srivastava DO, attest that this document has been prepared under my direction and personally reviewed by me in its entirety. I further attest, that it accurately reflects all work, treatment, procedures and medical decision -making performed by me. <Yamile Srivastava - Last Filed: 03/17/17 16:43> Diagnosis at time of Disposition: Fall, Laceration of occipital scalp - Discharge Dispostion Disposition: HOME Condition at time of disposition: Stable - Referrals Referrals: Allison Jin MD [Primary Care Provider] - - Patient Instructions Printed Discharge Instructions: DI for Closed Head Injury, DI for Laceration Repair Additional Instructions: Please follow up with your PMD. Please return to the ED with any further concerns. Please have your stitches removed in 7-10 days. Please walk with your walker. Please return to the ED with any further concerns.
[2017-03-17 12:58] LABS: BASOPHIL 0.3 % (0-2.0); EOSINOPHIL 0.3 % (0-4.5); MCH 29.3 pg (25.7-33.7); MCHC 33.2 g/dl (32.0-35.9); MEAN CELL VOLUME 88.3 fl (80-96); MEAN PLT VOLUME 7.3 fl (7.5-11.1); NEUTROPHILS 93.4 % (42.8-82.8); PLATELET COUNT 112 K/MM3 (134-434); RDW 14.6 % (11.9-15.9); WHITE BLOOD COUNT 9.3 K/mm3 (4.0-10.0)
[2017-03-17 13:00] LABS: URINE APPEARANCE CLEAR; URINE BILIRUBIN NEGATIVE (NEGATIVE); URINE BLOOD NEGATIVE (NEGATIVE); URINE COLOR STRAW; URINE GLUCOSE (UA) 1+ (NEGATIVE); URINE KETONE TRACE (NEGATIVE); URINE NITRITE NEGATIVE (NEGATIVE); URINE PROTEIN NEGATIVE (NEGATIVE); URINE UROBILINOGEN NEGATIVE mg/dL (0.2-1.0)
[2017-03-17 13:12] LABS: INR 0.96 (0.82-1.09); PROTHROMBIN TIME (PATIENT) 10.9 SEC (9.98-11.88)
[2017-03-17 13:15] LABS: ACTIVATED PTT 29.6 SECONDS (26.9-34.4)
[2017-03-17 13:21] LABS: ALBUMIN 3.6 g/dl (3.4-5.0); ANION GAP 5 (8-16); BILIRUBIN,TOTAL 1.1 mg/dL (0.2-1.0); CALCIUM 9.1 mg/dL (8.5-10.1); CO2 30 mmol/L (21-32); CREATININE 1.1 mg/dL (0.7-1.3); GLUCOSE,RANDOM 285 mg/dL (74-106); MAGNESIUM 1.9 mg/dL (1.8-2.4); SGOT/AST 15 U/L (15-37); TOT PROT 6.5 g/dl (6.4-8.2)
[2017-03-17 13:25] LABS: ALK PHOS 81 U/L (45-117); SGPT/ALT 23 U/L (12-78)
--- NOTE | 2017-03-17 16:59 | EKG ---
Test Reason : Blood Pressure : / mmHG Vent. Rate : 089 BPM Atrial Rate : 089 BPM P-R Int : 156 ms QRS Dur : 120 ms QT Int : 396 ms P-R-T Axes : 057 -50 025 degrees QTc Int : 481 ms NORMAL SINUS RHYTHM RIGHT BUNDLE BRANCH BLOCK LEFT ANTERIOR FASCICULAR BLOCK BIFASCICULAR BLOCK ABNORMAL ECG WHEN COMPARED WITH ECG OF 15-AUG-2016 17:08, NO SIGNIFICANT CHANGE WAS FOUND Confirmed by RAFAELA BERGER MD ([id number]) on 03/17/2017 4:59:04 PM Referred By: Confirmed By:RAFAELA BERGER MD
[2017-03-17 17:49] VITALS: BP 116/72; PULSE 86; TEMP 98.7
[2017-03-17 18:04] LABS: URINE LEUK ESTERASE TRACE (NEGATIVE)
[2017-03-17 21:13] LABS: URINE BACTERIA FEW /hpf (NEGATIVE)
== END 2017-03-17 17:49 | disposition home or self-care (01) ==
LOC: JER 11:02
PROC: 0HQ0XZZ Repair Scalp Skin, External Approach (ICD-10-PCS; principal; 2017-03-17)
PROC: 3E0234Z Introduction of Serum, Toxoid and Vaccine into Muscle, Percutaneous Approach (ICD-10-PCS; 2017-03-17)
DX: S01.01XA Laceration without foreign body of scalp, initial encounter (principal); W01.0XXA Fall on same level from slipping, tripping and stumbling without subsequent striking against object, initial encounter; Z91.81 History of falling; Y93.89 Activity, other specified; Y92.030 Kitchen in apartment as the place of occurrence of the external cause; Q06.8 Other specified congenital malformations of spinal cord; E11.9 Type 2 diabetes mellitus without complications; Z79.4 Long term (current) use of insulin; Z79.84 Long term (current) use of oral hypoglycemic drugs
CPT/HCPCS: 36415; 70450-TC; 71020-TC; 72125-TC; 73030-TC-RT; 80053; 81003; 81015; 83735; 85025; 85610; 85730; 90715; 93005; 93010; 99283-25